=== PATIENT | female | born 1935 | race Caucasian/White ===

== ENCOUNTER 2017-07-10 14:18 | Inpatient (IN) | payer MEDICARE, MEDICAID, OTHER ==
[~2017-07-10] VITALS: Ht 170.2 cm; Wt 72.8 kg
[2017-07-10 14:38] VITALS: BP 203/90; PULSE 96; RESP 20; TEMP 97.8; O2SAT 96
[2017-07-10] MEDS ORDERED: DICL1KIT5 TOPICAL (15:46)
[2017-07-10] MEDS ORDERED: MEMA28CA PO (15:46)
[2017-07-10] MEDS ORDERED: ATOR10TA15 PO (15:46)
[2017-07-10] MEDS ORDERED: METR-1 PO (15:46)
[2017-07-10] MEDS ORDERED: LISI-519 PO (15:46)
[2017-07-10] MEDS ORDERED: DONE5TAB7 PO (15:46)
[2017-07-10] MEDS ORDERED: SERO50TA PO (15:46)
[2017-07-10] MEDS ORDERED: SERO25TA PO (15:46)
[2017-07-10] MEDS ORDERED: CEFU1TAB18 PO (15:46)
[2017-07-10 15:51] LABS: BACTERIA, URINE RARE /hpf; BILIRUBIN, URINE NEG (NEG); BLOOD, URINE NEG (NEG); GLUCOSE,URINE NEG (NEG); HYALINE CAST, URINE 10 /lpf (RARE); KETONE, URINE TRACE mg/dL (NEG); MUCUS URINE MOD /lpf (OCC); NITRITE,URINE NEG (NEG); URINE COLOR YELLOW (YELLW/STRAW); URINE LEUKOCYTE ESTERASE SMALL (NEG)
[2017-07-10 15:51] LABS: AUTOMATED NEUTROPHIL # 3.6 TH/MM3 (1.8-7.7); BASOPHIL % 0.6 % (0.0-2.0); EOSINOPHIL # 0.1 TH/MM3 (0-0.4); EOSINOPHIL % 1.9 % (0.0-4.0); HEMATOCRIT 39.7 % (35.0-46.0); HEMOGLOBIN 13.3 GM/DL (11.6-15.3); LYMPH % 23.2 % (9.0-44.0); LYMPHOCYTE # 1.3 TH/MM3 (1.0-4.8); MEAN CELL VOLUME 92.2 FL (80.0-100.0); MEAN CORPUSCULAR HEMOGLOBIN 30.8 PG (27.0-34.0); MEAN CORPUSCULAR HGB CONC 33.4 % (32.0-36.0); MONO % 11.9 % (0.0-8.0); MONOCYTE # 0.7 TH/MM3 (0-0.9); NEUT % 62.4 % (16.0-70.0); PLATELET COUNT 236 TH/MM3 (150-450); RED BLOOD COUNT 4.31 MIL/MM3 (4.00-5.30); RED CELL DISTRIBUTION WIDTH 13.8 % (11.6-17.2); WHITE BLOOD COUNT 5.8 TH/MM3 (4.0-11.0)
[2017-07-10] MEDS ORDERED: FAMO20TA2 PO (15:52)
[2017-07-10] MEDS ORDERED: OCUVTAB4 PO (15:52)
[2017-07-10] MEDS ORDERED: ALPR.5 PO (15:52)
[2017-07-10] MEDS ORDERED: TIMO0.5S30 LEFT EYE (15:52)
[2017-07-10] MEDS ORDERED: BROM0.072 (15:52)
[2017-07-10] MEDS ORDERED: ALEN1TAB48 PO (15:52)
--- NOTE | 2017-07-10 15:58 | RADRPT ---
EXAM DATE/TIME: 07/10/2017 15:44 [facility] COMPARISON: No previous studies available for comparison. INDICATIONS : Altered mental status. Bizzare behavior. RADIATION DOSE: 27.09 CTDIvol (mGy) MEDICAL HISTORY : Dementia. Hypertension. SURGICAL HISTORY : Hysterectomy. ENCOUNTER: Initial ACUITY: 1 day PAIN SCALE: 0/10 LOCATION: cranial TECHNIQUE: Multiple contiguous axial images were obtained of the head. Using automated exposure control and adj ustment of the mA and/or kV according to patient size, radiation dose was kept as low as reasonably a chievable to obtain optimal diagnostic quality images. DICOM format image data is available electro nically for review and comparison. FINDINGS: There is no evidence for intracranial hemorrhage, mass effect, mass lesions, or edema. The visualize d bony structures appear intact. Slight degree of brain atrophy is seen. Slight periventricular whit e matter changes are seen nonspecific mostly consistent with chronic small vessel ischemic changes. There are no signs of acute infarction for technique. CONCLUSION: Slight atrophic and small vessel ischemic changes without any evidence for acute hemorrhage or mass effect. Cash Vergara MD on July 10, 2017 at 15:55 Board Certified Radiologist. This report was verified electronically.
--- NOTE | 2017-07-10 16:03 | RADRPT ---
EXAM DATE/TIME: 07/10/2017 15:28 [facility] COMPARISON: No previous studies available for comparison. INDICATIONS : Syncopal episode, High Blood Pressure MEDICAL HISTORY : Hypertension. Dementia SURGICAL HISTORY : Hysterectomy. ENCOUNTER: Initial ACUITY: 1 day PAIN SCORE: 0/10 LOCATION: Bilateral chest FINDINGS: The lungs are clear without infiltrate, nodule, or mass. There is no appreciable pleural effusion fo r technique. Heart and mediastinum are unremarkable. CONCLUSION: No acute cardiopulmonary disease. Cash Vergara MD on July 10, 2017 at 16:01 Board Certified Radiologist. This report was verified electronically.
[2017-07-10 16:05] LABS: ALBUMIN 3.5 GM/DL (3.4-5.0); ALT (GPT) 18 U/L (10-53); AST (GOT) 26 U/L (15-37); BICARBONATE 23.7 MEQ/L (21.0-32.0); BLOOD UREA NITROGEN 12 MG/DL (7-18); CALCIUM 8.9 MG/DL (8.5-10.1); CHLORIDE 111 MEQ/L (98-107); CREATININE 0.96 MG/DL (0.50-1.00); GLOMERULAR FILTRATION RATE 56 ML/MIN (>89); GLUCOSE,RANDOM 91 MG/DL (74-106); SODIUM (NA) 142 MEQ/L (136-145)
[2017-07-10 16:08] LABS: ALKALINE PHOSPHATASE 102 U/L (45-117); TOTAL BILIRUBIN ADULT 0.4 MG/DL (0.2-1.0); TOTAL PROTEIN 7.2 GM/DL (6.4-8.2)
[2017-07-10 16:12] LABS: ACETAMINOPHEN LESS THAN 2.0 MCG/ML (10.0-30.0)
--- NOTE | 2017-07-10 16:12 | PD ---
HPI Chief Complaint: Psychiatric Symptoms Time Seen by Provider: 14:52 Travel History International Travel<30 days: No Contact w/Intl Traveler<30days: No Traveled to known affect area: No History of Present Illness HPI 81-year-old female arrives to the ER as a romero act. She arrives from [facility] from an RESIDENTIAL. She is found in another patient's bed and upon awakening was combative. 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 She denies any intent to harm anybody or herself. Location generalized. Timing constant. Severity moderate. PFSH Past Medical History Dementia: Yes Glaucoma: Yes Hypertension: Yes Medical other: Yes (OSTEOPOROSIS) Past Surgical History Hysterectomy: Yes Social History Alcohol Use: No Tobacco Use: No Substance Use: No Allergies-Medications (Allergen,Severity, Reaction): Coded Allergies: Penicillins (Verified Adverse Reaction, Severe, 07/10/17) levofloxacin (Verified Adverse Reaction, Severe, 07/10/17) Reported Meds & Prescriptions Reported Meds & Active Scripts Active Reported Xanax (Alprazolam) 0.5 Mg Tab 0.5 Mg PO HS PRN Preservision Areds (Multiple Vitamins W/ Minerals) 1 Tab 1 Tab PO DAILY Famotidine 20 Mg Tab 20 Mg PO BID Timolol Opth Drops 0.5 % Soln 1 Drop LEFT EYE BID Prolensa Opth Drops (Bromfenac Opth Drops) 0.07% Soln 1 Drop DAILY Alendronate (Alendronate Sodium) 70 Mg Tab 70 Mg PO Q7D Seroquel (Quetiapine Fumarate) 50 Mg Tab 50 Mg PO BID Namenda Xr (Memantine) 28 Mg Caper 28 Mg PO DAILY Lisinopril 5 Mg Tab 5 Mg PO DAILY Donepezil 5 Mg Tab 5 Mg PO HS Diclo Gel Topical (Diclofenac Sodium) 1% Gel 1 Applic TOPICAL DAILY Atorvastatin (Atorvastatin Calcium) 10 Mg Tab 10 Mg PO HS Review of Systems ROS Limitations: Clinical Condition, Poor Historian Physical Exam Narrative GENERAL: 81-year-old female well-nourished well-developed no acute distress resting supine comfortably on bed SKIN: Focused skin assessment warm/dry. HEAD: Atraumatic. Normocephalic. EYES: Pupils equal and round. No scleral icterus. No injection or drainage. ENT: No nasal bleeding or discharge. Mucous membranes pink and moist. NECK: Trachea midline. No JVD. CARDIOVASCULAR: Regular rate and rhythm. No murmur appreciated. RESPIRATORY: No accessory muscle use. Clear to auscultation. Breath sounds equal bilaterally. GASTROINTESTINAL: Abdomen soft, non-tender, nondistended. Hepatic and splenic margins not palpable. MUSCULOSKELETAL: No obvious deformities. No clubbing. No cyanosis. No edema. NEUROLOGICAL: No focal cranial nerve deficit. Patient moving all extremities normally. Patient believes it's 2021. She knows her name and that she is in [facility]. 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 PSYCHIATRIC: Patient is here as a Romero act. To me she denies intent to harm others or herself Data Data Last Documented VS Vital Signs Date Time Temp Pulse Resp B/P (MAP) Pulse Ox O2 Delivery O2 Flow Rate FiO2 07/10/17 14:38 97.8 96 20 203/90 (127) 96 Vital signs reviewed Orders Orders Complete Blood Count With Diff (07/10/17 14:52) Comprehensive Metabolic Panel (07/10/17 14:52) Urinalysis - C+S If Indicated (07/10/17 14:52) Chest, Single Ap (07/10/17 14:52) Ct Brain W/O Iv Contrast(Rout) (07/10/17 14:52) Ecg Monitoring (07/10/17 14:52) Iv Access Insert/Monitor (07/10/17 14:52) Cath For Specimen (07/10/17 14:52) Oximetry (07/10/17 14:52) Drug Screen, Random Urine (07/10/17 14:52) Alcohol (Ethanol) (07/10/17 14:52) Salicylates (Aspirin) (07/10/17 14:52) Tylenol (Acetaminophen) (07/10/17 14:52) Urine Culture (07/10/17 15:30) Labs Laboratory Tests Test 07/10/17 15:20 07/10/17 15:30 White Blood Count 5.8 TH/MM3 Red Blood Count 4.31 MIL/MM3 Hemoglobin 13.3 GM/DL Hematocrit 39.7 % Mean Corpuscular Volume 92.2 FL Mean Corpuscular Hemoglobin 30.8 PG Mean Corpuscular Hemoglobin Concent 33.4 % Red Cell Distribution Width 13.8 % Platelet Count 236 TH/MM3 Mean Platelet Volume 10.0 FL Neutrophils (%) (Auto) 62.4 % Lymphocytes (%) (Auto) 23.2 % Monocytes (%) (Auto) 11.9 % Eosinophils (%) (Auto) 1.9 % Basophils (%) (Auto) 0.6 % Neutrophils # (Auto) 3.6 TH/MM3 Lymphocytes # (Auto) 1.3 TH/MM3 Monocytes # (Auto) 0.7 TH/MM3 Eosinophils # (Auto) 0.1 TH/MM3 Basophils # (Auto) 0.0 TH/MM3 CBC Comment DIFF FINAL Differential Comment Blood Urea Nitrogen 12 MG/DL Creatinine 0.96 MG/DL Random Glucose 91 MG/DL Albumin 3.5 GM/DL Calcium Level 8.9 MG/DL Aspartate Amino Transf (AST/SGOT) 26 U/L Alanine Aminotransferase (ALT/SGPT) 18 U/L Sodium Level 142 MEQ/L Potassium Level 4.1 MEQ/L Chloride Level 111 MEQ/L Carbon Dioxide Level 23.7 MEQ/L Anion Gap 7 MEQ/L Estimat Glomerular Filtration Rate 56 ML/MIN Salicylates Level LESS THAN 1.7 MG/DL Ethyl Alcohol Level LESS THAN 3 MG/DL Urine Color YELLOW Urine Turbidity HAZY Urine pH 6.0 Urine Specific [place] 1.026 Urine Protein 30 mg/dL Urine Glucose (UA) NEG mg/dL Urine Ketones TRACE mg/dL Urine Occult Blood NEG Urine Nitrite NEG Urine Bilirubin NEG Urine Urobilinogen 2.0 MG/DL Urine Leukocyte Esterase SMALL Urine RBC 3 /hpf Urine WBC 7 /hpf Urine Bacteria RARE /hpf Urine Hyaline Casts 10 /lpf Urine Mucus MOD /lpf Microscopic Urinalysis Comment CATH-CULTURE IND Urine Opiates Screen NEG Urine Barbiturates Screen NEG Urine Amphetamines Screen NEG Urine Benzodiazepines Screen POS Urine Cocaine Screen NEG Urine Cannabinoids Screen NEG MDM Medical Decision Making Medical Screen Exam Complete: Yes Emergency Medical Condition: Yes Medical Record Reviewed: Yes Differential Diagnosis UTI, psychosis, dementia, metabolic disarray Narrative Course CBC & BMP Diagram 07/10/17 15:20 Total Protein 7.2, Albumin 3.5, Calcium Level 8.9, Alkaline Phosphatase 102, Aspartate Amino Transf (AST/SGOT) 26, Alanine Aminotransferase (ALT/SGPT) 18, Total Bilirubin 0.4 Benzodiazepines positive in the urine Salicylates Tylenol drug screen otherwise negative Urinalysis shows a UTI Last Impressions Head CT 12/31/17 8557 Signed Impressions: Service Date/Time: Monday, July 10, 2017 15:44 - CONCLUSION: Slight atrophic and small vessel ischemic changes without any evidence for acute hemorrhage or mass effect. Cash Vergara MD Chest x-ray shows no acute disease Patient with a history of dementia who has a UTI. Combative behavior may be related to UTI. Abx provided. Diagnosis Primary Impression: UTI (urinary tract infection) Qualified Codes: N30.00 - Acute cystitis without hematuria Additional Impression: Combative behavior Admitting Information Admitting Physician Requests: Observation Jonathan Hui MD Jul 10, 2017 16:12
[2017-07-10] MEDS ORDERED: BACT800T5 PO (16:55)
[2017-07-10] MEDS ORDERED: SULFAMETHOXAZOLE-TRIMETHOPRIM DS 800-160 MG TAB PO ONE (17:00)
[2017-07-10] MEDS ORDERED: HALOPERIDOL LACTATE 5 MG/ML AMP IM ONE ×2 (17:45→19:45)
[2017-07-10 17:46] VITALS: BP 214/91; PULSE 100; RESP 20; O2SAT 95
[2017-07-10 18:34] VITALS: BP 197/86; PULSE 91; RESP 18; TEMP 98.6; O2SAT 99
--- NOTE | 2017-07-10 19:46 | PD ---
Physical Exam Date Seen by Provider: Jul 10, 2017 Time Seen by Provider: 19:45 Data Data Last Documented VS Vital Signs Date Time Temp Pulse Resp B/P (MAP) Pulse Ox O2 Delivery O2 Flow Rate FiO2 07/10/17 18:34 98.6 91 18 197/86 (123) 99 Room Air Orders Orders Complete Blood Count With Diff (07/10/17 14:52) Comprehensive Metabolic Panel (07/10/17 14:52) Urinalysis - C+S If Indicated (07/10/17 14:52) Chest, Single Ap (07/10/17 14:52) Ct Brain W/O Iv Contrast(Rout) (07/10/17 14:52) Ecg Monitoring (07/10/17 14:52) Iv Access Insert/Monitor (07/10/17 14:52) Cath For Specimen (07/10/17 14:52) Oximetry (07/10/17 14:52) Drug Screen, Random Urine (07/10/17 14:52) Alcohol (Ethanol) (07/10/17 14:52) Salicylates (Aspirin) (07/10/17 14:52) Tylenol (Acetaminophen) (07/10/17 14:52) Urine Culture (07/10/17 15:30) Psych Screen (07/10/17 16:14) Sulfamet-Trimeth Ds 800-160 Mg (Bactrim (07/10/17 17:00) Haloperidol Inj (Haldol Inj) (07/10/17 17:45) Diet Regular Basic (07/10/17 Dinner) Haloperidol Inj (Haldol Inj) (07/10/17 19:45) Restraints Non-Violent JERMAINE.Q3H (07/10/17 19:42) Labs Laboratory Tests Test 07/10/17 15:20 07/10/17 15:30 White Blood Count 5.8 TH/MM3 Red Blood Count 4.31 MIL/MM3 Hemoglobin 13.3 GM/DL Hematocrit 39.7 % Mean Corpuscular Volume 92.2 FL Mean Corpuscular Hemoglobin 30.8 PG Mean Corpuscular Hemoglobin Concent 33.4 % Red Cell Distribution Width 13.8 % Platelet Count 236 TH/MM3 Mean Platelet Volume 10.0 FL Neutrophils (%) (Auto) 62.4 % Lymphocytes (%) (Auto) 23.2 % Monocytes (%) (Auto) 11.9 % Eosinophils (%) (Auto) 1.9 % Basophils (%) (Auto) 0.6 % Neutrophils # (Auto) 3.6 TH/MM3 Lymphocytes # (Auto) 1.3 TH/MM3 Monocytes # (Auto) 0.7 TH/MM3 Eosinophils # (Auto) 0.1 TH/MM3 Basophils # (Auto) 0.0 TH/MM3 CBC Comment DIFF FINAL Differential Comment Blood Urea Nitrogen 12 MG/DL Creatinine 0.96 MG/DL Random Glucose 91 MG/DL Total Protein 7.2 GM/DL Albumin 3.5 GM/DL Calcium Level 8.9 MG/DL Alkaline Phosphatase 102 U/L Aspartate Amino Transf (AST/SGOT) 26 U/L Alanine Aminotransferase (ALT/SGPT) 18 U/L Total Bilirubin 0.4 MG/DL Sodium Level 142 MEQ/L Potassium Level 4.1 MEQ/L Chloride Level 111 MEQ/L Carbon Dioxide Level 23.7 MEQ/L Anion Gap 7 MEQ/L Estimat Glomerular Filtration Rate 56 ML/MIN Salicylates Level LESS THAN 1.7 MG/DL Acetaminophen Level LESS THAN 2.0 MCG/ML Ethyl Alcohol Level LESS THAN 3 MG/DL Urine Color YELLOW Urine Turbidity HAZY Urine pH 6.0 Urine Specific [place] 1.026 Urine Protein 30 mg/dL Urine Glucose (UA) NEG mg/dL Urine Ketones TRACE mg/dL Urine Occult Blood NEG Urine Nitrite NEG Urine Bilirubin NEG Urine Urobilinogen 2.0 MG/DL Urine Leukocyte Esterase SMALL Urine RBC 3 /hpf Urine WBC 7 /hpf Urine Bacteria RARE /hpf Urine Hyaline Casts 10 /lpf Urine Mucus MOD /lpf Microscopic Urinalysis Comment CATH-CULTURE IND Urine Opiates Screen NEG Urine Barbiturates Screen NEG Urine Amphetamines Screen NEG Urine Benzodiazepines Screen POS Urine Cocaine Screen NEG Urine Cannabinoids Screen NEG MDM Medical Record Reviewed: Yes Supervised Visit with SHIVA: Yes Differential Diagnosis . Narrative Course I was notified by the nursing staff that the patient has become increasingly agitated and has been disrupted to her care. She was placed into locks occlusion due to her destructive behavior and inability to follow direction. Consultation with Dr. Young has recommended 2.5 mg of additional Haldol. Patient had gotten 2.5 mg of Haldol 2 hours prior. Diagnosis Primary Impression: UTI (urinary tract infection) Qualified Codes: N30.00 - Acute cystitis without hematuria Additional Impression: Combative behavior Scripts Sulfamethoxazole-Trimethoprim (Bactrim DS) 800-160 Mg Tab 1 TAB PO BID for Infection, #14 TAB 0 Refills Prov: Jonathan Hui MD 07/10/17 Condition: Stable Chilango Holley Jul 10, 2017 19:46
[2017-07-10 23:07] VITALS: BP 144/73; PULSE 103; RESP 18; O2SAT 96
[2017-07-11 03:41] VITALS: RESP 16
[2017-07-11 09:19] VITALS: BP 200/76; PULSE 104; RESP 18; TEMP 97.3; O2SAT 98
[2017-07-11] MEDS ORDERED: SULFAMETHOXAZOLE-TRIMETHOPRIM DS 800-160 MG TAB PO ONE (09:30)
[2017-07-11] MEDS ORDERED: LISINOPRIL 5 MG TAB PO ONE (09:30)
[2017-07-11] MEDS ORDERED: ALPRAZolam 0.5 MG TAB PO ONE (09:30)
[2017-07-11] MEDS ORDERED: QUEtiapine FUMARATE 100 MG TAB PO ONE (09:30)
[2017-07-11] MEDS ORDERED: diphenhydrAMINE HCL 50 MG CAP PO PRN (12:15)
[2017-07-11] MEDS ORDERED: ALUMINUM/MAGNESIUM/SIMETH 30 ML CUP PO PRN (12:15)
[2017-07-11] MEDS ORDERED: MAGNESIUM HYDROXIDE SUSP 30 ML CUP PO PRN (12:15)
[2017-07-11] MEDS ORDERED: diphenhydrAMINE HCL 50 MG/ML VIAL IM PRN (12:15)
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
[2017-07-11] MEDS: LORazepam 0.5 MG TAB PO PRN (16:28)
[2017-07-11 17:07] VITALS: BP 172/84; RESP 16
[2017-07-11 17:28] VITALS: BP 181/79; PULSE 108; RESP 16; TEMP 98.5; O2SAT 98
[2017-07-11 20:52] VITALS: BP 196/92; PULSE 89; RESP 20; O2SAT 97
[2017-07-11] MEDS: ACETAMINOPHEN 325 MG TAB PO PRN (21:21)
[2017-07-11] MEDS: cloNIDine HCL 0.1 MG TAB PO PRN (21:28)
[2017-07-11] MEDS: SULFAMETHOXAZOLE-TRIMETHOPRIM DS 800-160 MG TAB PO SCH (22:34)
[2017-07-11] MEDS: ATORVASTATIN 10 MG TAB PO SCH (22:34)
[2017-07-11] MEDS: FAMOTIDINE 20 MG TAB PO SCH (22:34)
[2017-07-11] MEDS: TIMOLOL MALEATE 0.5% OPHT SOLN 5 ML BTL LEFT EYE SCH (22:34)
[2017-07-12] MEDS: ACETAMINOPHEN 325 MG TAB PO PRN (02:23)
[2017-07-12 06:13] VITALS: BP 162/85; PULSE 73; RESP 16; TEMP 97.6; O2SAT 95
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
[2017-07-12 08:20] VITALS: BP 139/67; PULSE 76; RESP 18; TEMP 97.4; O2SAT 98
[2017-07-12] MEDS ORDERED: PROLENSA 0.07% LEFT EYE SCH (09:00)
--- NOTE | 2017-07-12 10:39 | HHI.PYPN ---
Subjective Remarks Patient seen for follow-up, chart review. Patient is a 1-year-old woman, domiciled an assisted living facility, with a past psychiatric history of dementia who was recently admitted to the inpatient psychiatry unit under [facility] act after having been found in the process bed and was combative refused. Patient was noted to have had aggressive behavior in the ER she required ETO 2 along with being put in seclusion at one point. Patient also endorsed to admitting psychiatrist that she had suicidal ideations with plan to [facility] [employer] [employer] as well as noted to be alert and oriented only to person. Patient was found lying in hospital bed, cooperative. Patient alert and oriented only to person and partially to place processes hospital but not the city close (. 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 Patient at times noted to be confused during interview, endorse feeling depressed stating that "I don't want to be here". Patient admitted to having suicidal ideations and states that this time she felt when she was in the ER but didn't states that she has been happy at the assisted living facility. Patient states "everyone is depressed there" as well as her reporting feeling depressed but stated that she expects to get better. Patient denies any SI at this time denies any perceptual disturbances or delusions at this time. Review of Systems Except as stated in HPI: all other systems reviewed are Neg Mental Status Examination Appearance: Disheveled Consciousness: Alert Orientation: Person Motor Activity: Abnormal gait Speech: Incoherent Language: Perseveration Fund of Knowledge: Inadequate Attention and Concentration: Inadequate Memory: Impaired Mood: Sad, Other ("depressed") Affect: Sad Thought Process & Associations: Other (concrete) Thought Content: Bizarre thinking, Delusional Hallucination Type: None Delusion Type: Paranoid Suicidal Ideation: Yes (denies today) Suicidal Plan: No Suicidal Intention: No Homicidal Ideation: No Homicidal Plan: No Homicidal Intention: No Insight: Poor Judgment: Poor Results Labs Labs reviewed Date/Time Source Procedure Growth Status 07/10/17 15:30 Urine Catheterized Urine Urine Culture - Final 50-100,000 CFU/ML MIXED GRAM POSITIVE... Complete Vitals/IOs Vital Signs Date Time Temp Pulse Resp B/P (MAP) Pulse Ox O2 Delivery O2 Flow Rate FiO2 1/2/18 08:20 97.4 76 18 139/67 (91) 98 07/10/17 18:34 Room Air Intake and Output 07/12/17 07/12/17 07/13/17 08:00 16:00 00:00 Intake Total 240 ml Balance 240 ml Assessment & Plan Problem List: (1) Alzheimer's dementia with behavioral disturbance ICD Codes: G30.9 - Alzheimer's disease, unspecified; F02.81 - Dementia in other diseases classified elsewhere with behavioral disturbance (2) Dementia in other diseases classified elsewhere with behavioral disturbance ICD Codes: F02.81 - Dementia in other diseases classified elsewhere with behavioral disturbance Assessment & Plan Patient this time continues to be noted to, alert and oriented only to person and partially to place. Patient endorsing feeling depressed and having previously endorses ideation which may be circumstantial but denies any suicidal ideations today. Patient does not recall events prior to her hospitalization. We'll start quetiapine 12.5 mg by mouth twice a day and citalopram 10 mg by mouth daily and as tolerated well will increase to 20 mg by mouth daily starting tomorrow for depression. Continue recommendations as per primary medical team. Discharge planning in progress Justification for Cont. Inpt. At risk for decompensation at lower level care Discharge Planning Patient to return to an assisted living facility when medically and psychiatrically stable Liam Powers MD Jul 12, 2017 10:39
--- NOTE | 2017-07-12 10:44 | RADRPT ---
EXAM DATE/TIME: 07/12/2017 10:36 [facility] COMPARISON: CT BRAIN W/O CONTRAST, July 10, 2017, 15:44. INDICATIONS : Trauma, fall. Contusion. RADIATION DOSE: 47.15 CTDIvol (mGy) MEDICAL HISTORY : Dementia. Hypertension. SURGICAL HISTORY : None. ENCOUNTER: Initial ACUITY: 1 day PAIN SCALE: 0/10 LOCATION: cranial TECHNIQUE: Multiple contiguous axial images were obtained of the head. Using automated exposure control and adj ustment of the mA and/or kV according to patient size, radiation dose was kept as low as reasonably a chievable to obtain optimal diagnostic quality images. DICOM format image data is available electro nically for review and comparison. FINDINGS: There is no evidence for intracranial hemorrhage, mass effect, mass lesions, or edema. The visualize d bony structures appear intact. Slight degree of brain atrophy is seen. Slight periventricular whit e matter changes are seen nonspecific mostly consistent with chronic small vessel ischemic changes. There are no signs of acute infarction for technique. CONCLUSION: Slight atrophic and small vessel ischemic changes without any evidence for acute hemorrhage or mass effect. Cash Vergara MD on July 12, 2017 at 10:41 Board Certified Radiologist. This report was verified electronically.
[2017-07-12] MEDS ORDERED: PILL SPLITTER OTHER PRN (10:45)
[2017-07-12] MEDS: LISINOPRIL 5 MG TAB PO SCH (11:11)
[2017-07-12] MEDS: SULFAMETHOXAZOLE-TRIMETHOPRIM DS 800-160 MG TAB PO SCH ×3 (11:11→20:49)
[2017-07-12] MEDS: TIMOLOL MALEATE 0.5% OPHT SOLN 5 ML BTL LEFT EYE SCH ×2 (11:12→20:41)
[2017-07-12] MEDS: QUEtiapine FUMARATE 25 MG TAB PO SCH ×2 (11:12→20:42)
[2017-07-12] MEDS: FAMOTIDINE 20 MG TAB PO SCH ×2 (11:12→20:42)
--- NOTE | 2017-07-12 11:30 | RADRPT ---
EXAM DATE/TIME: 07/12/2017 10:40 [facility] COMPARISON: No previous studies available for comparison. INDICATIONS : Trauma, fall. ORAL CONTRAST: No oral contrast ingested. RADIATION DOSE: 21.40 CTDIvol (mGy) MEDICAL HISTORY : Dementia. Hypertension. SURGICAL HISTORY : Hysterectomy. ENCOUNTER: Initial ACUITY: 1 day PAIN SCALE: 5/10 LOCATION: Bilateral pelvis TECHNIQUE: Volumetric scanning of the pelvis was performed. Using automated exposure control and adjustment of the mA and/or kV according to patient size, radiation dose was kept as low as reasonably achievable t o obtain optimal diagnostic quality images. DICOM format image data is available electronically for review and comparison. FINDINGS: There is no evidence for free fluid, mass, abscess formation, or any significant pathological adenopa thy. There are no signs of diverticulitis. Scattered diverticuli are present in the visualized colo n. There are degenerative changes and possible bulging discs in the lower lumbosacral spine not adeq uately characterized. CONCLUSION: No definite fracture is seen for techniqueGina Vergara MD on July 12, 2017 at 11:25 Board Certified Radiologist. This report was verified electronically.
[2017-07-12] MEDS ORDERED: CITALOPRAM HYDROBROMIDE 20 MG TAB PO ONE (11:45)
[2017-07-12 11:53] LABS: AUTOMATED NEUTROPHIL # 5.6 TH/MM3 (1.8-7.7); BASOPHIL % 0.4 % (0.0-2.0); EOSINOPHIL # 0.1 TH/MM3 (0-0.4); EOSINOPHIL % 1.9 % (0.0-4.0); HEMATOCRIT 40.5 % (35.0-46.0); HEMOGLOBIN 13.2 GM/DL (11.6-15.3); LYMPH % 13.3 % (9.0-44.0); MEAN CELL VOLUME 91.5 FL (80.0-100.0); MEAN CORPUSCULAR HEMOGLOBIN 29.8 PG (27.0-34.0); MEAN CORPUSCULAR HGB CONC 32.6 % (32.0-36.0); MEAN PLATELET VOLUME 9.9 FL (7.0-11.0); MONO % 7.9 % (0.0-8.0); MONOCYTE # 0.6 TH/MM3 (0-0.9); NEUT % 76.5 % (16.0-70.0); PLATELET COUNT 238 TH/MM3 (150-450); RED BLOOD COUNT 4.43 MIL/MM3 (4.00-5.30); RED CELL DISTRIBUTION WIDTH 14.4 % (11.6-17.2); WHITE BLOOD COUNT 7.3 TH/MM3 (4.0-11.0)
[2017-07-12 12:00] VITALS: BP 128/58; PULSE 99; RESP 18; TEMP 97.4; O2SAT 96
[2017-07-12 12:24] LABS: ALBUMIN 3.9 GM/DL (3.4-5.0); ALT (GPT) 19 U/L (10-53); AST (GOT) 32 U/L (15-37); BICARBONATE 25.1 MEQ/L (21.0-32.0); BLOOD UREA NITROGEN 13 MG/DL (7-18); CALCIUM 9.4 MG/DL (8.5-10.1); CHLORIDE 106 MEQ/L (98-107); CHOLESTEROL 210 MG/DL (120-200); CREATININE 1.18 MG/DL (0.50-1.00); GLOMERULAR FILTRATION RATE 44 ML/MIN (>89); GLUCOSE,RANDOM 97 MG/DL (74-106); SODIUM (NA) 140 MEQ/L (136-145); TRIGLYCERIDES 139 MG/DL (42-150)
[2017-07-12 12:50] LABS: ALKALINE PHOSPHATASE 103 U/L (45-117); CHOLESTEROL/ HDL RATIO 3.26 RATIO; HDL CHOLESTEROL 64.4 MG/DL (40.0-60.0); LDL CHOLESTEROL 118 MG/DL (0-99); TOTAL BILIRUBIN ADULT 0.6 MG/DL (0.2-1.0); TOTAL PROTEIN 7.5 GM/DL (6.4-8.2)
[2017-07-12 16:00] VITALS: BP 111/59; PULSE 94; RESP 20; TEMP 97.6; O2SAT 93
[2017-07-12 16:28] LABS: HEMOGLOBIN A1C 5.7 % (4.3-6.0)
--- NOTE | 2017-07-12 16:48 | EKG ---
Date Performed: 07/12/2017 Time Performed: 11:09:25 PTAGE: 81 years EKG: Sinus rhythm NONSPECIFIC ST & T-WAVE ABNORMALITY BORDERLINE ECG NO PREVIOUS TRACING DOCTOR: Naya Li Interpretating Date/Time 07/12/2017 16:47:33
[2017-07-12 18:00] VITALS: BP 111/59; PULSE 94; RESP 18; TEMP 97.6; O2SAT 92
[2017-07-12 20:19] VITALS: BP 167/74; PULSE 97; RESP 17; TEMP 97.7; O2SAT 98
[2017-07-12] MEDS: ATORVASTATIN 10 MG TAB PO SCH (20:42)
[2017-07-12] MEDS: LORazepam 2 MG/ML VIAL IM PRN (23:29)
[2017-07-13] VITALS: BP 174/81; PULSE 86; RESP 16; TEMP 97.9; O2SAT 93
[2017-07-13 04:04] VITALS: BP 204/98; PULSE 89; RESP 15; TEMP 97.7; O2SAT 97
[2017-07-13] MEDS: cloNIDine HCL 0.1 MG TAB PO PRN (04:05)
[2017-07-13 06:04] VITALS: BP 113/52; PULSE 89; RESP 15; TEMP 97.7
[2017-07-13] MEDS: TIMOLOL MALEATE 0.5% OPHT SOLN 5 ML BTL LEFT EYE SCH ×2 (08:08→20:28)
--- NOTE | 2017-07-13 08:11 | HHI.PR ---
Subjective Remarks Follow-up on 81-year-old female with history of dementia, HTN, HLD and currently with UTI. Seems drowsy to me this AM, talking and able to follow commands. Nurse repots patient did not sleep last night, had refused some of her medications and received IM Ativan. She is able to tell me who the president is and her full name. Asked if she knew where she was at and patient tells me "this is suppose to turn into my house". She denies any dysuria, fever , chills, nausea, vomiting or pain. Objective Vitals Vital Signs Date Time Temp Pulse Resp B/P (MAP) Pulse Ox O2 Delivery O2 Flow Rate FiO2 07/13/17 06:04 97.7 89 15 113/52 (72) 07/13/17 04:04 97.7 89 15 204/98 (133) 97 07/13/17 00:00 97.9 86 16 174/81 (112) 93 07/12/17 20:19 97.7 97 17 167/74 (105) 98 07/12/17 18:00 97.6 94 18 111/59 (76) 92 07/12/17 16:00 97.6 94 20 111/59 (76) 93 07/12/17 12:00 97.4 99 18 128/58 (81) 96 07/12/17 08:20 97.4 76 18 139/67 (91) 98 I/O 07/12/17 07/12/17 07/12/17 07/13/17 07/13/17 07/13/17 07:00 15:00 23:00 07:00 15:00 23:00 Intake Total 120 ml 1100 ml 120 ml 60 ml Balance 120 ml 1100 ml 120 ml 60 ml Intake Oral 120 ml 1100 ml 120 ml 60 ml # Voids 2 5 0 Result Diagram: 07/12/17 1105 07/12/17 1105 Imaging Last Impressions Pelvis CT 07/12/17 0000 Signed Impressions: Service Date/Time: Wednesday, July 12, 2017 10:40 - CONCLUSION: No definite fracture is seen for technique. K. Ernesto Vergara MD Head CT 07/12/17 0000 Signed Impressions: Service Date/Time: Wednesday, July 12, 2017 10:36 - CONCLUSION: Slight atrophic and small vessel ischemic changes without any evidence for acute hemorrhage or mass effect. Cash Vergara MD Chest X-Ray 07/10/17 1452 Signed Impressions: Service Date/Time: Monday, July 10, 2017 15:28 - CONCLUSION: No acute cardiopulmonary disease. Cash Vergara MD Objective Remarks GENERAL: This is a well-nourished, well-developed patient, in no apparent distress. SKIN: No rashes, ecchymoses or lesions. Cool and dry. HEAD: Atraumatic. Normocephalic. No temporal or scalp tenderness. EYES: Pupils equal round and reactive. Extraocular motions intact. No injection or drainage. ENT: Nose without bleeding, purulent drainage or septal hematoma. Airway patent. NECK: Trachea midline. CARDIOVASCULAR: Regular rate and rhythm without murmurs, gallops, or rubs. RESPIRATORY: Clear to auscultation. Anterior breath sounds are clear to auscultation. GASTROINTESTINAL: Abdomen soft, non-tender, nondistended. No guarding. MUSCULOSKELETAL: Extremities without clubbing, cyanosis, or edema. No joint tenderness, effusion, or edema noted. NEUROLOGICAL: Awake and alert but appears sleepy today. Oriented to self. Bilateral upper and lower strength +5. No facial droop, speech is clear. A/P Assessment and Plan 81-year-old female patient with history of dementia and behavioral disturbance admitted to psychiatric unit for suicidal ideation. Medicine has been consultation for management of chronic medical problems. Dementia and behavioral disturbance - per psych - Patient did not get much sleep last night required IM Ativan, sleepy today. Fall unwitnessed - Head CT and Abd/pelvis CT negative for fracture or bleed. - Fall precautions - OT and PT have been consulted. HTN, fluctuating - Patient reportedly refusing some meds last night. BP early this AM 204/98, nurse reports patient was administered Clonidine (this was not scanned in computer apparently). BP around 6am 113/52 - continue lisinopril - clonodine prn HLD - continue statin UTI - Culture and sensitivity with mixed gram-positive organisms probably contaminated - On Bactrim end date placed for 07/16, denies urinary symptoms, afebrile DVT prop - Early ambulation Patient was discussed with nurse. Angle [place] Jul 13, 2017 08:11
[2017-07-13] MEDS: FAMOTIDINE 20 MG TAB PO SCH ×3 (08:14→20:28)
[2017-07-13] MEDS: SULFAMETHOXAZOLE-TRIMETHOPRIM DS 800-160 MG TAB PO SCH ×3 (08:14→20:28)
[2017-07-13] MEDS: LISINOPRIL 5 MG TAB PO SCH ×2 (08:14→09:00)
[2017-07-13] MEDS: CITALOPRAM HYDROBROMIDE 20 MG TAB PO SCH ×2 (08:14→09:00)
[2017-07-13] MEDS: QUEtiapine FUMARATE 25 MG TAB PO SCH ×3 (08:14→20:28)
--- NOTE | 2017-07-13 09:52 | HHI.PYPN ---
Subjective Remarks Patient seen for follow-up, chart reviewed. Discussion she staff reported the patient had poor sleep last evening about 1 hour of sleep, had required Ativan by mouth 1 is also noted to be belligerent, screaming last evening. Patient continue with elevated blood pressure refusing medications last night. Patient was found sitting in hospital chair, cooperative interview today. Patient states that she has been feeling "okay" noted to be alert and oriented only to person and partially to place (hospital) and noted to be confused. 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 Patient denies any suicide ideations stating that she had said this previously because "being a smart as" but denying at this time. Patient was able to take medications this morning and not noted to be agitated. Review of Systems Except as stated in HPI: all other systems reviewed are Neg Mental Status Examination Appearance: Disheveled Consciousness: Alert Orientation: Person Motor Activity: Abnormal gait Speech: Slow, Other (low-volume) Language: Perseveration Fund of Knowledge: Inadequate Attention and Concentration: Inadequate Memory: Impaired Mood: Appropriate, Other ("depressed") Affect: Appropriate Thought Process & Associations: Loose associations, Tangential Thought Content: Bizarre thinking, Delusional Hallucination Type: None Delusion Type: Paranoid Suicidal Ideation: Yes (denies today) Suicidal Plan: No Suicidal Intention: No Homicidal Ideation: No Homicidal Plan: No Homicidal Intention: No Insight: Poor Judgment: Poor Results Labs Labs reviewed Test 07/12/17 11:05 White Blood Count 7.3 TH/MM3 Red Blood Count 4.43 MIL/MM3 Hemoglobin 13.2 GM/DL Hematocrit 40.5 % Mean Corpuscular Volume 91.5 FL Mean Corpuscular Hemoglobin 29.8 PG Mean Corpuscular Hemoglobin Concent 32.6 % Red Cell Distribution Width 14.4 % Platelet Count 238 TH/MM3 Mean Platelet Volume 9.9 FL Neutrophils (%) (Auto) 76.5 % Lymphocytes (%) (Auto) 13.3 % Monocytes (%) (Auto) 7.9 % Eosinophils (%) (Auto) 1.9 % Basophils (%) (Auto) 0.4 % Neutrophils # (Auto) 5.6 TH/MM3 Lymphocytes # (Auto) 1.0 TH/MM3 Monocytes # (Auto) 0.6 TH/MM3 Eosinophils # (Auto) 0.1 TH/MM3 Basophils # (Auto) 0.0 TH/MM3 CBC Comment DIFF FINAL Differential Comment Blood Urea Nitrogen 13 MG/DL Creatinine 1.18 MG/DL Random Glucose 97 MG/DL Total Protein 7.5 GM/DL Albumin 3.9 GM/DL Calcium Level 9.4 MG/DL Alkaline Phosphatase 103 U/L Aspartate Amino Transf (AST/SGOT) 32 U/L Alanine Aminotransferase (ALT/SGPT) 19 U/L Total Bilirubin 0.6 MG/DL Sodium Level 140 MEQ/L Potassium Level 4.0 MEQ/L Chloride Level 106 MEQ/L Carbon Dioxide Level 25.1 MEQ/L Anion Gap 9 MEQ/L Estimat Glomerular Filtration Rate 44 ML/MIN Hemoglobin A1c 5.7 % Triglycerides Level 139 MG/DL Cholesterol Level 210 MG/DL LDL Cholesterol 118 MG/DL HDL Cholesterol 64.4 MG/DL Cholesterol/HDL Ratio 3.26 RATIO Vitamin B12 Level 947 PG/ML 25-Hydroxy Vitamin D Total 18.1 ng/ML Thyroid Stimulating Hormone 3rd Gen 3.520 uIU/ML Date/Time Source Procedure Growth Status 07/10/17 15:30 Urine Catheterized Urine Urine Culture - Final 50-100,000 CFU/ML MIXED GRAM POSITIVE... Complete Vitals/IOs Vital Signs Date Time Temp Pulse Resp B/P (MAP) Pulse Ox O2 Delivery O2 Flow Rate FiO2 07/13/17 06:04 97.7 89 15 113/52 (72) 07/13/17 04:04 97 07/10/17 18:34 Room Air Intake and Output 07/13/17 07/13/17 07/14/17 08:00 16:00 00:00 Intake Total 60 ml Balance 60 ml Assessment & Plan Problem List: (1) Alzheimer's dementia with behavioral disturbance ICD Codes: G30.9 - Alzheimer's disease, unspecified; F02.81 - Dementia in other diseases classified elsewhere with behavioral disturbance (2) Dementia in other diseases classified elsewhere with behavioral disturbance ICD Codes: F02.81 - Dementia in other diseases classified elsewhere with behavioral disturbance Assessment & Plan Patient at this time continues with confusion, alert and oriented only to person and partially to place believing she is at a school at times. Patient was noted agitation last evening with poor sleep and consistent with medications. We'll continue to encourage adherence, continue recommendations as per primary medical team. Continue current treatment and add diphenhydramine 50 mg by mouth at bedtime when necessary insomnia.. Discharge planning in progress Justification for Cont. Inpt. At risk for further decompensation if at lower level of care Discharge Planning To return back to her [facility] once psychiatrically and medically stable Liam Powers MD Jul 13, 2017 09:52
[2017-07-13 18:00] VITALS: BP 133/71; PULSE 89; RESP 16; TEMP 97.1; O2SAT 90
[2017-07-13] MEDS: ATORVASTATIN 10 MG TAB PO SCH (20:28)
[2017-07-13] MEDS: diphenhydrAMINE HCL 50 MG CAP PO PRN (20:28)
[2017-07-14 06:05] VITALS: BP 159/71; PULSE 82; RESP 17; TEMP 97.6; O2SAT 95
[2017-07-14] MEDS: CITALOPRAM HYDROBROMIDE 20 MG TAB PO SCH (08:08)
[2017-07-14] MEDS: LISINOPRIL 5 MG TAB PO SCH (08:09)
[2017-07-14] MEDS: SULFAMETHOXAZOLE-TRIMETHOPRIM DS 800-160 MG TAB PO SCH ×2 (08:09→20:40)
[2017-07-14] MEDS: FAMOTIDINE 20 MG TAB PO SCH ×2 (08:09→20:28)
[2017-07-14] MEDS: TIMOLOL MALEATE 0.5% OPHT SOLN 5 ML BTL LEFT EYE SCH ×2 (08:09→20:27)
[2017-07-14] MEDS: QUEtiapine FUMARATE 25 MG TAB PO SCH ×2 (08:09→20:27)
[2017-07-14 10:51] LABS: BICARBONATE 22.6 MEQ/L (21.0-32.0); CALCIUM 9.2 MG/DL (8.5-10.1); CREATININE 2.47 MG/DL (0.50-1.00)
[2017-07-14] MEDS ORDERED: LISI-519 PO (12:04)
[2017-07-14] MEDS ORDERED: SULF1TAB23 PO (12:04)
[2017-07-14] MEDS ORDERED: LIPI10TA PO (12:04)
[2017-07-14] MEDS ORDERED: CELE20TA PO (12:04)
[2017-07-14] MEDS ORDERED: SERO25TA PO (12:04)
[2017-07-14] MEDS ORDERED: FAMO20TA2 PO (12:04)
--- NOTE | 2017-07-14 16:12 | HHI.PYPN ---
Subjective Remarks Patient seen for follow-up, chart reviewed. Discussion with nursing staff reported that the patient has been compliant with medications, calm, slept well and continues to require maximum assist. Patient was found sitting on hospital chair in day room, calm and cooperative, continues to be confused and oriented only to person and partially to place (hospital). She reverts back to thinking she is at a school at times but noted to be in good spirits. She reports having slept well, no physical complaints at this time, states eating well. She denies any AH or paranoid ideations. Patient was taken to mental health court where design assistant ordered a continuance. Patient likely for discharge soon but as per primary medical team will require IV fluids with follow up labs tomorrow AM due to elevated creatinine. Review of Systems Except as stated in HPI: all other systems reviewed are Neg Mental Status Examination Appearance: Disheveled Consciousness: Alert Orientation: Person Motor Activity: Abnormal gait Speech: Slow, Other (low-volume) Language: Perseveration Fund of Knowledge: Inadequate Attention and Concentration: Inadequate Memory: Impaired Mood: Appropriate, Other ("depressed") Affect: Appropriate Thought Process & Associations: Loose associations, Tangential Thought Content: Bizarre thinking, Delusional Hallucination Type: None Delusion Type: Paranoid (denies today) Suicidal Ideation: Yes (denies today) Suicidal Plan: No Suicidal Intention: No Homicidal Ideation: No Homicidal Plan: No Homicidal Intention: No Insight: Poor Judgment: Poor Results Labs labs reviewed Test 07/14/17 08:58 Blood Urea Nitrogen 34 MG/DL Creatinine 2.47 MG/DL Random Glucose 110 MG/DL Calcium Level 9.2 MG/DL Sodium Level 138 MEQ/L Potassium Level 4.0 MEQ/L Chloride Level 104 MEQ/L Carbon Dioxide Level 22.6 MEQ/L Anion Gap 11 MEQ/L Estimat Glomerular Filtration Rate 19 ML/MIN Date/Time Source Procedure Growth Status 07/10/17 15:30 Urine Catheterized Urine Urine Culture - Final 50-100,000 CFU/ML MIXED GRAM POSITIVE... Complete Vitals/IOs Vital Signs Date Time Temp Pulse Resp B/P (MAP) Pulse Ox O2 Delivery O2 Flow Rate FiO2 07/14/17 06:05 97.6 82 17 159/71 (100) 95 07/10/17 18:34 Room Air Intake and Output 1/407/14/17 07/15/17 08:00 16:00 00:00 Intake Total 120 ml 120 ml Balance 120 ml 120 ml Assessment & Plan Problem List: (1) Alzheimer's dementia with behavioral disturbance ICD Codes: G30.9 - Alzheimer's disease, unspecified; F02.81 - Dementia in other diseases classified elsewhere with behavioral disturbance (2) Dementia in other diseases classified elsewhere with behavioral disturbance ICD Codes: F02.81 - Dementia in other diseases classified elsewhere with behavioral disturbance Assessment & Plan Patient continues with baseline confusion, A&O x [address] No behavioral dyscontrol recently, compliant with treatment. Elevated renal function, recommendations per primary medical team for IV hydration which patient will be transferred to medical/psychiatry unit for IV fluids and follow up labs. Continue current treatment. Discharge planning in progress. Justification for Cont. Inpt. At risk for further decompensation at lower level of care. Liam Powers MD Jul 14, 2017 16:12
[2017-07-14] MEDS ORDERED: SODIUM CHLORID 0.9% 500 ML INJ 500 ML IV ONE (16:30)
[2017-07-14 17:41] VITALS: BP 132/78; PULSE 76; RESP 16; TEMP 97.5; O2SAT 96
--- NOTE | 2017-07-14 17:51 | HHI.PR ---
Subjective Remarks Follow-up on 81-year-old female with history of dementia, HTN, HLD, and decreased renal function. Patient seen and examined sitting up to a chair having dinner with nurse at bedside. Patient is very talkative today with roommate as well as staff members. Her thoughts continued to be very disorganized and is oriented only to self. She denies any headache, fever, chills, nausea, vomiting, diarrhea. Patient denies any dysuria, shortness of breath, or cough. 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 She goes on to tell the nurse and night that she constantly handles people and large man causing the bruises on her hands and arms. Objective Vitals Vital Signs Date Time Temp Pulse Resp B/P (MAP) Pulse Ox O2 Delivery O2 Flow Rate FiO2 07/14/17 17:41 97.5 76 16 132/78 (96) 96 07/14/17 06:05 97.6 82 17 159/71 (100) 95 07/13/17 18:00 97.1 89 16 133/71 (91) 90 I/O 07/13/17 07/13/17 07/13/17 07/14/17 07/14/17 07/14/17 07:00 15:00 23:00 07:00 15:00 23:00 Intake Total 60 ml 0 ml 480 ml 240 ml Balance 60 ml 0 ml 480 ml 240 ml Intake Oral 60 ml 0 ml 480 ml 240 ml # Voids 0 3 # Bowel Movements 1 Result Diagram: 07/12/17 1105 07/14/17 0858 Imaging Last Impressions Pelvis CT 07/12/17 0000 Signed Impressions: Service Date/Time: Wednesday, July 12, 2017 10:40 - CONCLUSION: No definite fracture is seen for technique. Cash Vergara MD Head CT 07/12/17 0000 Signed Impressions: Service Date/Time: Wednesday, July 12, 2017 10:36 - CONCLUSION: Slight atrophic and small vessel ischemic changes without any evidence for acute hemorrhage or mass effect. Cash Vergara MD Chest X-Ray 07/10/17 1452 Signed Impressions: Service Date/Time: Monday, July 10, 2017 15:28 - CONCLUSION: No acute cardiopulmonary disease. Cash Vergara MD Objective Remarks GENERAL: This is a well-nourished, well-developed patient, in no apparent distress. SKIN: No rashes or lesions. Bilateral hand and forearm scattered ecchymotic areas. Cool and dry. HEAD: Atraumatic. Normocephalic. No temporal or scalp tenderness. EYES: Pupils equal round and reactive. Extraocular motions intact. No injection or drainage. ENT: Nose without bleeding, purulent drainage or septal hematoma. Airway patent. NECK: Trachea midline. CARDIOVASCULAR: Regular rate and rhythm without murmurs, gallops, or rubs. RESPIRATORY: Bilateral anterior and posterior breath sounds clear to auscultation. GASTROINTESTINAL: Abdomen soft, non-tender, nondistended. No guarding. MUSCULOSKELETAL: Extremities without clubbing, cyanosis, or edema. No joint tenderness, effusion, or edema noted. NEUROLOGICAL: Awake and alert. Oriented to self. Bilateral upper and lower strength +5, moves all extremities spontaneously and to command. No facial droop, speech is clear. A/P Assessment and Plan 81-year-old female patient with history of dementia and behavioral disturbance admitted to psychiatric unit for suicidal ideation. Medicine has been consultation for management of chronic medical problems. Dementia and behavioral disturbance -Psych had plans to discharge patient back to [facility] today, however placed on hold and transferred back to medical psych unit due to decreased renal function. Decreased renal function - Labwork from today with BUN 34, creatinine 2.47, GFR 19, most likely due to poor PO intake. - Will transfer back to medical psych unit for IV hydration NS @75ml/hr for 500ml total as patient is not drinking much PO - Continue to encourage oral fluids - Monitor for fluid overload - Recheck renal function tomorrow - Discontinue lisinopril, start amlodipine for blood pressure control. Fall unwitnessed - Head CT and Abd/pelvis CT negative for fracture or bleed. - Fall precautions - Continue fall precautions HTN, fluctuates - BP this morning 159/71, later this afternoon 132/78 - Discontinue lisinopril secondary to decreased renal function, start amlodipine - clonodine prn - Continue trending BP HLD - continue statin UTI - Culture and sensitivity with mixed gram-positive organisms probably contaminated - On Bactrim end date placed for 07/16, denies urinary symptoms, afebrile DVT prop - Early ambulation Patient was discussed with nurse in 2500 unit and nurse and med psych unit. Angle [place] Jul 14, 2017 17:51
[2017-07-14] MEDS: diphenhydrAMINE HCL 50 MG CAP PO PRN (20:26)
[2017-07-14] MEDS: ATORVASTATIN 10 MG TAB PO SCH (20:26)
[2017-07-14] MEDS: LORazepam 0.5 MG TAB PO PRN (20:27)
[2017-07-15 06:13] VITALS: BP 159/70; PULSE 81; RESP 16; TEMP 97.6; O2SAT 93
--- NOTE | 2017-07-15 07:55 | HHI.PR ---
Subjective Remarks Follow-up on 81-year-old female with history of dementia, HTN, HLD, and decreased renal function. Patient seen and examined sitting up eating breakfast. She denies any fevers, chills, N/V/D. She is oriented X2. She repots that she has been trying to drink more fluids. She does not have any concerns. I explain to we are checking her renal function to try and get her back to her [facility]. Nurse repots stool this AM with blood in it, no other bleeding reported. Objective Vitals Vital Signs Date Time Temp Pulse Resp B/P (MAP) Pulse Ox O2 Delivery O2 Flow Rate FiO2 07/15/17 06:13 97.6 81 16 159/70 (99) 93 07/14/17 17:41 97.5 76 16 132/78 (96) 96 I/O 07/14/17 07/14/17 07/14/17 07/15/17 07/15/17 07/15/17 07:00 15:00 23:00 07:00 15:00 23:00 Intake Total 100 ml 240 ml 320 ml 0 ml Output Total 1 ml Balance 100 ml 240 ml 319 ml 0 ml Intake Oral 100 ml 240 ml 320 ml 0 ml Output Urine Total 1 ml # Voids 3 1 # Bowel Movements 1 2 1 Result Diagram: 07/12/17 1105 07/14/17 0858 Imaging Last Impressions Pelvis CT 07/12/17 0000 Signed Impressions: Service Date/Time: Wednesday, July 12, 2017 10:40 - CONCLUSION: No definite fracture is seen for technique. Cash Vergara MD Head CT 07/12/17 0000 Signed Impressions: Service Date/Time: Wednesday, July 12, 2017 10:36 - CONCLUSION: Slight atrophic and small vessel ischemic changes without any evidence for acute hemorrhage or mass effect. Cash Vergara MD Chest X-Ray 07/10/17 1452 Signed Impressions: Service Date/Time: Monday, July 10, 2017 15:28 - CONCLUSION: No acute cardiopulmonary disease. Cash Vergara MD Objective Remarks GENERAL: This is a well-nourished, well-developed patient, in no apparent distress. SKIN: No rashes or lesions. Bilateral hand and forearm scattered ecchymotic areas. Cool and dry. HEAD: Atraumatic. Normocephalic. No temporal or scalp tenderness. EYES: Pupils equal round and reactive. Extraocular motions intact. No injection or drainage. ENT: Nose without bleeding, purulent drainage or septal hematoma. Airway patent. NECK: Trachea midline. CARDIOVASCULAR: Regular rate and rhythm without murmurs, gallops, or rubs. RESPIRATORY: Bilateral anterior and posterior breath sounds clear to auscultation. GASTROINTESTINAL: Abdomen soft, non-tender, nondistended. No guarding. MUSCULOSKELETAL: Extremities without clubbing, cyanosis, or edema. No joint tenderness, effusion, or edema noted. NEUROLOGICAL: Awake and alert. Oriented to self. Bilateral upper and lower strength +5, moves all extremities spontaneously and to command. No facial droop, speech is clear. A/P Assessment and Plan 81-year-old female patient with history of dementia and behavioral disturbance admitted to psychiatric unit for suicidal ideation. Medicine has been consultation for management of chronic medical problems. Dementia and behavioral disturbance -Psych had plans to discharge patient back to [facility] today, however placed on hold and transferred back to medical psych unit due to decreased renal function. Decreased renal function - BUN 34--->51 creatinine 2.47--->2.81 GFR 19--->16 Renal function worse this AM - 500ml NS bolus last PM. Continue gentle hydration NS @ 50ml/hr, check renal US, consult nephrology appreciate recommendations - Continue to encourage oral fluids - Monitor for fluid overload - Discontinue lisinopril, start amlodipine for blood pressure control. Fall unwitnessed - Head CT and Abd/pelvis CT negative for fracture or bleed. - Fall precautions - Continue fall precautions HTN, fluctuates - BP this morning 156/70 - Discontinued lisinopril secondary to decreased renal function, started amlodipine - clonodine prn - Continue trending BP Blood in stool - H&H have been stable and VVS - Will check Hemoccult - Recheck H&H tomorrow - Monitor for bleeding, likely hemorrhoids. - Not on any blood thinners. - Did take a look at stool on bed pad, surrounding brown stool, does not appear to be blood to me rather soaking of stool on pad. HLD - continue statin UTI - Culture and sensitivity with mixed gram-positive organisms probably contaminated - On Bactrim D/C today, denies urinary symptoms, afebrile DVT prop - Early ambulation Patient was discussed with nurse in 2500 unit and nurse and med psych unit. Angle [place] Jul 15, 2017 07:55
[2017-07-15] MEDS: QUEtiapine FUMARATE 25 MG TAB PO SCH ×2 (08:16→21:01)
[2017-07-15] MEDS: amLODIPine BESYLATE 5 MG TAB PO SCH (08:16)
[2017-07-15] MEDS: TIMOLOL MALEATE 0.5% OPHT SOLN 5 ML BTL LEFT EYE SCH ×2 (08:16→21:00)
[2017-07-15] MEDS: CITALOPRAM HYDROBROMIDE 20 MG TAB PO SCH (08:16)
[2017-07-15] MEDS: FAMOTIDINE 20 MG TAB PO SCH ×2 (08:21→21:02)
[2017-07-15 08:30] LABS: BICARBONATE 19.2 MEQ/L (21.0-32.0); CALCIUM 8.5 MG/DL (8.5-10.1); CREATININE 2.81 MG/DL (0.50-1.00)
[2017-07-15] MEDS ORDERED: POTASSIUM CHLORIDE 20 MEQ CONTROLLED RELEASE TAB PO ONE ×2 (08:45→10:30)
[2017-07-15] MEDS: SODIUM CHLOR 0.9% 1000 ML INJ 1,000 ML IV SCH (09:40)
--- NOTE | 2017-07-15 10:11 | HHI.PYPN ---
Subjective Remarks Discussion she staff reported the patient had been compliant pleasant and cooperative. Patient was found lying in hospital bed, cooperative interview today. Noted to be in good spirits. Patient states that she is feeling "okay" reported having slept well, her mood general has been okay, reports feeling occasionally depressed when she is upset but not having any thoughts of self- harm or suicide ideations. Patient reports being alert and oriented only to person and place but not to time. Patient denies any perceptual disturbances or any delusions. Patient currently not having any behavioral disturbances, has not had any episodes of agitation and is currently psychiatrically clear for discharge but due to current lab abnormalities which indicated patient with worsening renal function is continue to be followed by medical team for now and may be be transferred onto the medical floor for further evaluation and management. Review of Systems Except as stated in HPI: all other systems reviewed are Neg Mental Status Examination Appearance: Appropriate Consciousness: Alert Orientation: Person Motor Activity: Abnormal gait Speech: Unremarkable Language: Adequate Fund of Knowledge: Inadequate Attention and Concentration: Adequate Memory: Impaired Mood: Appropriate, Other ("depressed") Affect: Appropriate Thought Process & Associations: Tangential Thought Content: Appropriate Hallucination Type: None Delusion Type: None Suicidal Ideation: No Suicidal Plan: No Suicidal Intention: No Homicidal Ideation: No Homicidal Plan: No Homicidal Intention: No Insight: Fair Judgment: Impulsive Results Labs Labs reviewed Test 07/15/17 07:45 Blood Urea Nitrogen 51 MG/DL Creatinine 2.81 MG/DL Random Glucose 89 MG/DL Calcium Level 8.5 MG/DL Sodium Level 138 MEQ/L Potassium Level 3.4 MEQ/L Chloride Level 106 MEQ/L Carbon Dioxide Level 19.2 MEQ/L Anion Gap 13 MEQ/L Estimat Glomerular Filtration Rate 16 ML/MIN Date/Time Source Procedure Growth Status 07/15/17 09:30 Stool Stool Stool Occult Blood (JUAN) Pending Received 07/10/17 15:30 Urine Catheterized Urine Urine Culture - Final 50-100,000 CFU/ML MIXED GRAM POSITIVE... Complete Vitals/IOs Vital Signs Date Time Temp Pulse Resp B/P (MAP) Pulse Ox O2 Delivery O2 Flow Rate FiO2 07/15/17 06:13 97.6 81 16 159/70 (99) 93 Intake and Output 07/15/17 07/15/17 07/15/17 07:59 15:59 23:59 Intake Total 240 ml Balance 240 ml Assessment & Plan Problem List: (1) Alzheimer's dementia with behavioral disturbance ICD Codes: G30.9 - Alzheimer's disease, unspecified; F02.81 - Dementia in other diseases classified elsewhere with behavioral disturbance (2) Dementia in other diseases classified elsewhere with behavioral disturbance ICD Codes: F02.81 - Dementia in other diseases classified elsewhere with behavioral disturbance Assessment & Plan Patient at this time noted to have stable mood, not endorsing any perceptual disturbances or any paranoid delusions. Patient has not had any behavioral disturbances recently and no episodes of agitation as a compliant with treatment. Patient currently with elevated creatinine upon lab work continues to be followed by medical team. Patient may require transfer to the medical floor further reduction management this patient currently psychiatrically cleared for discharge. Will await recommendations by medical team for now. Discharge planning in progress Justification for Cont. Inpt. At risk for further decompensation if at lower level of care Liam Powers MD Jul 15, 2017 10:11
--- NOTE | 2017-07-15 11:26 | RADRPT ---
EXAM DATE/TIME: 07/15/2017 10:17 [facility] COMPARISON: No previous studies available for comparison. INDICATIONS : Increased BUN/creatinine. MEDICAL HISTORY : Osteoporosis. Hypertension. Glaucoma. Dementia. Confusion. SURGICAL HISTORY : Hysterectomy. Blood transfusions. ENCOUNTER: Initial ACUITY: 1 day PAIN SCORE: 0/10 LOCATION: Bilateral flank MEASUREMENTS: RIGHT KIDNEY: 10.6 x 4.1 x 4.0 cm LEFT KIDNEY: 10.3 x 4.3 x 5.3 cm FINDINGS: Ultrasound of the kidneys demonstrates increased echogenicity of the cortex compatible with medical r enal disease. No hydronephrosis or mass lesions are identified. The bladder demonstrates no abnormali ty. CONCLUSION: Echogenic kidneys bilaterally compatible with medical renal disease. Celestino Lopez MD on July 15, 2017 at 11:23 Board Certified Radiologist. This report was verified electronically.
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
[2017-07-15 18:00] VITALS: BP 161/70; PULSE 80; RESP 16; TEMP 98.4; O2SAT 93
[2017-07-15] MEDS: diphenhydrAMINE HCL 50 MG CAP PO PRN (21:01)
[2017-07-15] MEDS: ATORVASTATIN 10 MG TAB PO SCH (21:01)
[2017-07-15] MEDS: LORazepam 0.5 MG TAB PO PRN (21:01)
[2017-07-16] MEDS: SODIUM CHLOR 0.9% 1000 ML INJ 1,000 ML IV SCH (05:00)
[2017-07-16 05:45] VITALS: BP 179/94; PULSE 84; RESP 16; TEMP 97.5; O2SAT 94
--- NOTE | 2017-07-16 08:17 | HHI.PR ---
Subjective Remarks Feels tires. No nausea or vomiting. Denies chest pain or sob. No fever or chills. Encouraged PO intake. Objective Vitals Vital Signs Date Time Temp Pulse Resp B/P (MAP) Pulse Ox O2 Delivery O2 Flow Rate FiO2 07/16/17 05:45 97.5 84 16 179/94 (122) 94 07/15/17 18:00 98.4 80 16 161/70 (100) 93 I/O 07/15/17 07/15/17 07/15/17 07/16/17 07/16/17 07/16/17 07:00 15:00 23:00 07:00 15:00 23:00 Intake Total 0 ml 240 ml 300 ml Balance 0 ml 240 ml 300 ml Intake Oral 0 ml 240 ml 300 ml # Voids 1 2 # Bowel Movements 1 2 Result Diagram: 07/16/17 0755 07/15/17 0745 Imaging Last Impressions Renal Ultrasound 07/15/17 0000 Signed Impressions: Service Date/Time: Saturday, July 15, 2017 10:17 - CONCLUSION: Echogenic kidneys bilaterally compatible with medical renal disease. Celestino Lopez MD Pelvis CT 07/12/17 0000 Signed Impressions: Service Date/Time: Wednesday, July 12, 2017 10:40 - CONCLUSION: No definite fracture is seen for technique. Cash Vergara MD Head CT 07/12/17 0000 Signed Impressions: Service Date/Time: Wednesday, July 12, 2017 10:36 - CONCLUSION: Slight atrophic and small vessel ischemic changes without any evidence for acute hemorrhage or mass effect. Cash Vergara MD Chest X-Ray 07/10/17 1452 Signed Impressions: Service Date/Time: Monday, July 10, 2017 15:28 - CONCLUSION: No acute cardiopulmonary disease. Cash Vergara MD Objective Remarks GENERAL: This is a well-nourished, well-developed patient, in no apparent distress. CARDIOVASCULAR: Regular rate and rhythm without murmurs, gallops, or rubs. RESPIRATORY: Bilateral anterior and posterior breath sounds clear to auscultation. GASTROINTESTINAL: Abdomen soft, non-tender, nondistended. No guarding. MUSCULOSKELETAL: Extremities without clubbing, cyanosis, or edema. No joint tenderness, effusion, or edema noted. NEUROLOGICAL: Awake and alert. Oriented to self. Bilateral upper and lower strength +5, moves all extremities spontaneously and to command. No facial droop, speech is clear. A/P Assessment and Plan 81-year-old female patient with history of dementia and behavioral disturbance admitted to psychiatric unit for suicidal ideation. Medicine has been consultation for management of chronic medical problems. Dementia and behavioral disturbance -Psych had plans to discharge patient back to [facility] today, however placed on hold and transferred back to medical psych unit due to decreased renal function. Decreased renal function worsening - BUN 34--->51 creatinine 2.47--->2.81 GFR 19--->16 - Received 500ml NS bolus. Continue gentle hydration NS @ 50ml/hr, renal US with bilateral echogenic kidneys consistent with medical disease, consult nephrology appreciate recommendations - Continue to encourage oral fluids - Monitor for fluid overload - Discontinue lisinopril, started amlodipine for blood pressure control. Fall unwitnessed - Head CT and Abd/pelvis CT negative for fracture or bleed. - Fall precautions - Continue fall precautions HTN, fluctuates - BP this morning 156/70 - Discontinued lisinopril secondary to decreased renal function, started amlodipine - clonodine prn - Continue trending BP Blood in stool - H&H have been stable and VVS - Will check Hemoccult - Recheck H&H tomorrow - Monitor for bleeding, likely hemorrhoids. - Not on any blood thinners. - Did take a look at stool on bed pad, surrounding brown stool, does not appear to be blood to me rather soaking of stool on pad. HLD - continue statin UTI - Culture and sensitivity with mixed gram-positive organisms probably contaminated - On Bactrim D/C today, denies urinary symptoms, afebrile DVT prop - Early ambulation Discussed with the patient, nurse Ayleen Amaya MD Jul 16, 2017 08:17
[2017-07-16] MEDS: TIMOLOL MALEATE 0.5% OPHT SOLN 5 ML BTL LEFT EYE SCH ×2 (08:19→21:00)
[2017-07-16] MEDS: amLODIPine BESYLATE 5 MG TAB PO SCH (08:20)
[2017-07-16] MEDS: CITALOPRAM HYDROBROMIDE 20 MG TAB PO SCH (08:20)
[2017-07-16] MEDS: FAMOTIDINE 20 MG TAB PO SCH ×2 (08:20→21:00)
[2017-07-16] MEDS: QUEtiapine FUMARATE 25 MG TAB PO SCH ×2 (08:20→20:59)
--- NOTE | 2017-07-16 12:30 | HHI.NPPN ---
Objective Data Data 07/16/17 07/17/17 19:00 07:00 Intake Total 120 ml Balance 120 ml Intake Oral 120 ml Vital Signs Date Time Temp Pulse Resp B/P (MAP) Pulse Ox O2 Delivery O2 Flow Rate FiO2 07/16/17 05:45 97.5 84 16 179/94 (122) 94 07/15/17 18:00 98.4 80 16 161/70 (100) 93 -: 07/16/17 0755 07/15/17 0745 Physical Exam General Appearance: Well Developed Neck Neck Exam: Neck Supple Pulmonary Resp Exam: Decreased Bases Cardiology CV Exam: Regular Gastrointestinal/Abdomen GI Exam: Soft, Non-Tender Extremeties Extremities Exam: No Edema Assessment/Plan Problem List: (1) Acute renal failure ICD Codes: N17.9 - Acute kidney failure, unspecified Plan: She has normal renal function at baseline. ALDO most likely due to rapid correction of blood pressure, may have suffered hypoperfusion injury In addition she was on Bactrim which can cause increased serum levels of creatinine; it was stopped She is making urine US negative for obstruction Trial of IVF, on 0.9% at 50. Mild acidosis, monitor for now Repeat labs today K was replaced. (2) HTN (hypertension) ICD Codes: I10 - Essential (primary) hypertension Plan: She is on Norvasc; JOELLEN has been stopped (3) UTI (urinary tract infection) ICD Codes: N39.0 - Urinary tract infection, site not specified Status: Acute Plan: Was on Bactrim; may have had sufficient therapy Repeat culture is negative (4) Dementia in other diseases classified elsewhere with behavioral disturbance ICD Codes: F02.81 - Dementia in other diseases classified elsewhere with behavioral disturbance Plan: Psych to manage Problem Qualifiers (1) UTI (urinary tract infection): Qualified Codes: N30.00 - Acute cystitis without hematuria Juno Damon MD Jul 16, 2017 12:30
[2017-07-16 12:58] LABS: BICARBONATE 21.8 MEQ/L (21.0-32.0); CALCIUM 8.9 MG/DL (8.5-10.1); CREATININE 1.65 MG/DL (0.50-1.00)
--- NOTE | 2017-07-16 13:28 | HHI.PYPN ---
Subjective Remarks No change Review of Systems ROS Limitations: Clinical Condition Except as stated in HPI: all other systems reviewed are Neg Mental Status Examination Appearance: Appropriate Consciousness: Alert Orientation: Person Motor Activity: Abnormal gait Speech: Unremarkable Language: Adequate Fund of Knowledge: Inadequate Attention and Concentration: Adequate Memory: Impaired Mood: Appropriate, Other ("depressed") Affect: Appropriate Thought Process & Associations: Tangential Thought Content: Appropriate Hallucination Type: None Delusion Type: None Suicidal Ideation: No Suicidal Plan: No Suicidal Intention: No Homicidal Ideation: No Homicidal Plan: No Homicidal Intention: No Insight: Fair Judgment: Impulsive Results Labs Test 07/16/17 07:55 07/16/17 11:35 Hemoglobin 12.5 GM/DL Blood Urea Nitrogen 46 MG/DL Creatinine 1.65 MG/DL Random Glucose 107 MG/DL Calcium Level 8.9 MG/DL Sodium Level 140 MEQ/L Potassium Level 3.0 MEQ/L Chloride Level 108 MEQ/L Carbon Dioxide Level 21.8 MEQ/L Anion Gap 10 MEQ/L Estimat Glomerular Filtration Rate 30 ML/MIN Date/Time Source Procedure Growth Status 07/15/17 09:30 Stool Stool Stool Occult Blood (JUAN) - Final HEMOCCULT NEGATIVE Complete 07/10/17 15:30 Urine Catheterized Urine Urine Culture - Final 50-100,000 CFU/ML MIXED GRAM POSITIVE... Complete Vitals/IOs Vital Signs Date Time Temp Pulse Resp B/P (MAP) Pulse Ox O2 Delivery O2 Flow Rate FiO2 07/16/17 05:45 97.5 84 16 179/94 (122) 94 Intake and Output 07/16/17 07/16/17 07/17/17 08:00 16:00 00:00 Intake Total 120 ml Balance 120 ml Assessment & Plan Problem List: (1) Alzheimer's dementia with behavioral disturbance ICD Codes: G30.9 - Alzheimer's disease, unspecified; F02.81 - Dementia in other diseases classified elsewhere with behavioral disturbance (2) Dementia in other diseases classified elsewhere with behavioral disturbance ICD Codes: F02.81 - Dementia in other diseases classified elsewhere with behavioral disturbance Assessment & Plan Continue current treatment plan Estimated LOS: days Justification for Cont. Inpt. Likely to decompensate at lower level of care. Solis Gonzalez MD Jul 16, 2017 13:28
[2017-07-16] MEDS: LORazepam 0.5 MG TAB PO PRN (13:46)
[2017-07-16] MEDS ORDERED: POTASSIUM CHLORIDE 10 MEQ CONTROLLED RELEASE TAB PO ONE (15:00)
[2017-07-16 18:00] VITALS: BP 150/69; PULSE 79; RESP 18; TEMP 98.4; O2SAT 93
[2017-07-16] MEDS: ATORVASTATIN 10 MG TAB PO SCH (21:00)
[2017-07-17] MEDS: SODIUM CHLOR 0.9% 1000 ML INJ 1,000 ML IV SCH ×2 (01:25→20:00)
[2017-07-17] MEDS: LORazepam 2 MG/ML VIAL IM PRN (04:44)
[2017-07-17] MEDS: cloNIDine HCL 0.1 MG TAB PO PRN ×2 (04:54→18:25)
[2017-07-17 05:59] LABS: AUTOMATED NEUTROPHIL # 5.9 TH/MM3 (1.8-7.7); BASOPHIL % 0.6 % (0.0-2.0); EOSINOPHIL # 0.2 TH/MM3 (0-0.4); HEMATOCRIT 36.8 % (35.0-46.0); HEMOGLOBIN 12.3 GM/DL (11.6-15.3); MEAN CELL VOLUME 91.8 FL (80.0-100.0); MEAN CORPUSCULAR HEMOGLOBIN 30.6 PG (27.0-34.0); MEAN CORPUSCULAR HGB CONC 33.3 % (32.0-36.0); MEAN PLATELET VOLUME 10.9 FL (7.0-11.0); MONO % 12.3 % (0.0-8.0); NEUT % 72.1 % (16.0-70.0); PLATELET COUNT 258 TH/MM3 (150-450); RED BLOOD COUNT 4.01 MIL/MM3 (4.00-5.30); RED CELL DISTRIBUTION WIDTH 14.1 % (11.6-17.2); WHITE BLOOD COUNT 8.1 TH/MM3 (4.0-11.0)
[2017-07-17 06:21] LABS: BICARBONATE 21.7 MEQ/L (21.0-32.0); CALCIUM 8.6 MG/DL (8.5-10.1); CREATININE 1.07 MG/DL (0.50-1.00)
[2017-07-17 07:11] VITALS: BP 229/90; PULSE 80; RESP 18; TEMP 97.5; O2SAT 93
[2017-07-17] MEDS ORDERED: POTASSIUM CHLORIDE 10 MEQ CONTROLLED RELEASE TAB PO ONE (09:15)
--- NOTE | 2017-07-17 09:46 | HHI.PR ---
Subjective Remarks NO NEW COMPLAINTS KIDNEY FUNCTIONS ARE MUCH IMPROVED DW RN AND PT Objective Vitals Vital Signs Date Time Temp Pulse Resp B/P (MAP) Pulse Ox O2 Delivery O2 Flow Rate FiO2 07/17/17 07:11 97.5 80 18 229/90 (136) 93 07/16/17 18:00 98.4 79 18 150/69 (96) 93 I/O 07/16/17 07/16/17 07/16/17 07/17/17 07/17/17 07/17/17 07:00 15:00 23:00 07:00 15:00 23:00 Intake Total 360 ml 240 ml 160 ml Balance 360 ml 240 ml 160 ml Intake Oral 360 ml 240 ml 160 ml # Voids 2 5 2 # Bowel Movements 2 1 2 Result Diagram: 07/17/1751707/17/17517 Other Results Laboratory Tests Test 07/15/17 07:45 07/15/17 09:30 07/15/17 11:57 07/16/17 07:55 Blood Urea Nitrogen 51 MG/DL Creatinine 2.81 MG/DL Random Glucose 89 MG/DL Calcium Level 8.5 MG/DL Sodium Level 138 MEQ/L Potassium Level 3.4 MEQ/L Chloride Level 106 MEQ/L Carbon Dioxide Level 19.2 MEQ/L Anion Gap 13 MEQ/L Estimat Glomerular Filtration Rate 16 ML/MIN Stool C. difficile Toxin (PCR) NEGATIVE Stl C. difficile Toxin Epiderm 027 PRESUMPTIVE NEGATIVE Hematocrit 37.1 % Hemoglobin 12.5 GM/DL Test 07/16/17 11:35 07/17/17 05:18 Blood Urea Nitrogen 46 MG/DL 38 MG/DL Creatinine 1.65 MG/DL 1.07 MG/DL Random Glucose 107 MG/DL 122 MG/DL Calcium Level 8.9 MG/DL 8.6 MG/DL Sodium Level 140 MEQ/L 145 MEQ/L Potassium Level 3.0 MEQ/L 3.2 MEQ/L Chloride Level 108 MEQ/L 113 MEQ/L Carbon Dioxide Level 21.8 MEQ/L 21.7 MEQ/L Anion Gap 10 MEQ/L 10 MEQ/L Estimat Glomerular Filtration Rate 30 ML/MIN 49 ML/MIN White Blood Count 8.1 TH/MM3 Red Blood Count 4.01 MIL/MM3 Hemoglobin 12.3 GM/DL Hematocrit 36.8 % Mean Corpuscular Volume 91.8 FL Mean Corpuscular Hemoglobin 30.6 PG Mean Corpuscular Hemoglobin Concent 33.3 % Red Cell Distribution Width 14.1 % Platelet Count 258 TH/MM3 Mean Platelet Volume 10.9 FL Neutrophils (%) (Auto) 72.1 % Lymphocytes (%) (Auto) 12.0 % Monocytes (%) (Auto) 12.3 % Eosinophils (%) (Auto) 3.0 % Basophils (%) (Auto) 0.6 % Neutrophils # (Auto) 5.9 TH/MM3 Lymphocytes # (Auto) 1.0 TH/MM3 Monocytes # (Auto) 1.0 TH/MM3 Eosinophils # (Auto) 0.2 TH/MM3 Basophils # (Auto) 0.0 TH/MM3 CBC Comment DIFF FINAL Differential Comment Imaging Last Impressions Renal Ultrasound 07/15/17 0000 Signed Impressions: Service Date/Time: Saturday, July 15, 2017 10:17 - CONCLUSION: Echogenic kidneys bilaterally compatible with medical renal disease. Celestino Lopez MD Pelvis CT 07/12/17 0000 Signed Impressions: Service Date/Time: Wednesday, July 12, 2017 10:40 - CONCLUSION: No definite fracture is seen for technique. Cash Vergara MD Head CT 07/12/17 0000 Signed Impressions: Service Date/Time: Wednesday, July 12, 2017 10:36 - CONCLUSION: Slight atrophic and small vessel ischemic changes without any evidence for acute hemorrhage or mass effect. Cash Vergara MD Chest X-Ray 07/10/17 1452 Signed Impressions: Service Date/Time: Monday, July 10, 2017 15:28 - CONCLUSION: No acute cardiopulmonary disease. Cash Vergara MD Objective Remarks GENERAL: AWAKE AND ALERT PLEASANTLY CONFUSED SKIN: Warm and dry. HEAD: Atraumatic. Normocephalic. EYES: Pupils equal and round. No scleral icterus. No injection or drainage. EOMI ENT: No nasal bleeding or discharge. Mucous membranes pink and moist. TONGUE MIDLINE NECK: Trachea midline. No JVD. CARDIOVASCULAR: Regular rate and rhythm. S1, S2 NO S3 OR S4 RESPIRATORY: No accessory muscle use. Clear to auscultation. Breath sounds equal bilaterally. GASTROINTESTINAL: Abdomen soft, non-tender, nondistended. Hepatic and splenic margins not palpable. MUSCULOSKELETAL: Extremities without clubbing, cyanosis, or edema. No obvious deformities. NEUROLOGICAL: Awake and alert. No obvious cranial nerve deficits. Motor grossly within normal limits. 4 out of 5 muscle strength in the arms and legs. Normal speech. PSYCHIATRIC: INAppropriate mood and affect; insight and judgment ABnormal. Procedures NONE Medications and IVs Current Medications Trimethoprim/ Sulfamethoxazole (Bactrim Ds 800-160 Mg) 1 tab ONCE ONCE PO ; Start 07/10/17 at 17:00; Stop 07/10/17 at 17:01; Status DC Haloperidol Lactate (Haldol Inj) 2.5 mg ONCE ONCE IM Last administered on 17:47; Start 07/10/17 at 17:45; Stop 07/10/17 at 17:46; Status DC Haloperidol Lactate (Haldol Inj) 2.5 mg ONCE ONCE IM Last administered on 19:59; Start 07/10/17 at 19:45; Stop 07/10/17 at 19:46; Status DC Trimethoprim/ Sulfamethoxazole (Bactrim Ds 800-160 Mg) 1 tab ONCE ONCE PO Last administered on 07/11/17at 09:37; Start 07/11/17 at 09:30; Stop 07/11/17 at 09: 31; Status DC Lisinopril (Prinivil) 5 mg ONCE ONCE PO Last administered on 07/11/17at 09:37; Start 07/11/17 at 09:30; Stop 07/11/17 at 09:31; Status DC Quetiapine Fumarate (SEROquel) 50 mg ONCE ONCE PO Last administered on at 09:37; Start 07/11/17 at 09:30; Stop 07/11/17 at 09:31; Status DC Alprazolam (Xanax) 0.5 mg ONCE ONCE PO Last administered on 07/11/17at 09:37; Start 07/11/17 at 09:30; Stop 07/11/17 at 09:31; Status DC Lorazepam (Ativan) 0.5 mg Q12H PRN PO MODERATE TO SEVERE ANXIETY Last administered on 07/16/17at 13:46; Start 07/11/17 at 12:15 Lorazepam (Ativan Inj) 0.5 mg Q12H PRN IM MODERATE TO SEVERE ANXIETY Last administered on 07/17/17at 04:44; Start 07/11/17 at 12:15 Diphenhydramine HCl (Benadryl) 50 mg Q6H PRN PO For mild anxiety and/or EPS Last administered on 07/11/17at 16:28; Start 07/11/17 at 12:15 Diphenhydramine HCl (Benadryl Inj) 50 mg Q6H PRN IM For mild anxiety and/or EPS Last administered on 07/16/17at 08:19; Start 07/11/17 at 12:15 Acetaminophen (Tylenol) 650 mg Q4H PRN PO Pain 1-5 or Temp >101F Last administered on 07/12/17at 02:23; Start 07/11/17 at 12:15 Magnesium Hydroxide (Milk Of Magnesia Liq) 30 ml DAILY PRN PO CONSTIPATION; Start 07/11/17 at 12:15 Al Hydrox/Mg Hydrox/Simethicone (Mag-Al Plus Susp Liq) 30 ml Q6H PRN PO DYSPEPSIA; Start 07/11/17 at 12:15 Atorvastatin Calcium (Lipitor) 10 mg HS PO Last administered on 07/16/17at 21:00 ; Start 07/11/17 at 21:00 Famotidine (Pepcid) 20 mg BID PO Last administered on 07/13/17at 09:00; Start 07/11/17 at 21:00; Stop 07/13/17 at 15:14; Status DC Lisinopril (Prinivil) 5 mg DAILY PO Last administered on 07/14/17at 08:09; Start 07/12/17 at 09:00; Stop 07/14/17 at 17:04; Status DC Trimethoprim/ Sulfamethoxazole (Bactrim Ds 800-160 Mg) 1 tab BID PO Last administered on 07/14/17at 20:40; Start 07/11/17 at 21:00; Stop 07/15/17 at 08:48; Status DC Timolol Maleate (Timoptic 0.5% Opt Soln) 1 drop BID LEFT EYE Last administered on 07/16/17at 21:00; Start 07/11/17 at 21:00 Patient Own Medication PT OWN MED: PROLE... DAILY LEFT EYE ; Start 07/12/17 at 09 :00; Status Future Hold Clonidine (Catapres) 0.1 mg Q6H PRN PO SBP> OR = 180, DBP> OR = 100 Last administered on 07/17/17at 04:54; Start 07/11/17 at 13:30 Quetiapine Fumarate (SEROquel) 12.5 mg BID PO Last administered on 07/16/17at 20: 59; Start 07/12/17 at 10:45 Miscellaneous (Pill Splitter) 1 ea UNSCH PRN OTHER SEE LABEL COMMENTS; Start at 10:45 Citalopram Hydrobromide (CeleXA) 10 mg ONCE ONCE PO Last administered on at 11:48; Start 07/12/17 at 11:45; Stop 07/12/17 at 11:46; Status DC Citalopram Hydrobromide (CeleXA) 20 mg DAILY PO Last administered on 07/16/17at 08:20; Start 07/13/17 at 09:00 Diphenhydramine HCl (Benadryl) 50 mg HS PRN PO INSOMNIA Last administered on 07/15/17at 21:01; Start 07/13/17 at 10:00 Famotidine (Pepcid) 10 mg BID PO Last administered on 07/16/17at 21:00; Start 07/13/17 at 21:00 Sodium Chloride 500 ml @ 75 mls/hr BOLUS ONCE IV Last administered on at 16:30; Start 07/14/17 at 16:30; Stop 07/14/17 at 23:09; Status DC Amlodipine Besylate (Norvasc) 5 mg DAILY PO Last administered on 07/16/17at 08:20 ; Start 07/15/17 at 09:00 Potassium Chloride (KCl) 20 meq ONCE ONCE PO Last administered on 07/15/17at 09: 39; Start 07/15/17 at 08:45; Stop 07/15/17 at 08:46; Status DC Sodium Chloride 1,000 ml @ 50 mls/hr Q20H IV Last administered on 07/17/17at 01: 25; Start 07/15/17 at 09:00 Potassium Chloride (KCl) 20 meq ONCE ONCE PO ; Start 07/15/17 at 10:30; Stop 07/15/17 at 10:31; Status UNV Potassium Chloride (KCl) 40 meq ONCE ONCE PO Last administered on 07/16/17at 15: 07; Start 07/16/17 at 15:00; Stop 07/16/17 at 15:02; Status DC Potassium Chloride (KCl) 60 meq ONCE ONCE PO ; Start 07/17/17 at 09:15; Stop 07/17/17 at 09:16; Status DC A/P Assessment and Plan 81-year-old female patient with history of dementia and behavioral disturbance admitted to psychiatric unit for suicidal ideation. Medicine has been consultation for management of chronic medical problems. Dementia and behavioral disturbance -Psych had plans to discharge patient back to [facility], however placed on hold and transferred back to medical psych unit due to decreased renal function. Decreased renal function worsening - BUN 34--->51 creatinine 2.47--->2.81 GFR 19--->16 CR 1.07 NOW - Received 500ml NS bolus. Continue gentle hydration NS @ 50ml/hr, renal US with bilateral echogenic kidneys consistent with medical disease, consult nephrology appreciate recommendations - Continue to encourage oral fluids - Monitor for fluid overload - Discontinue lisinopril, started amlodipine for blood pressure control. Fall unwitnessed - Head CT and Abd/pelvis CT negative for fracture or bleed. - Fall precautions - Continue fall precautions HTN, fluctuates - BP this morning 156/70 - Discontinued lisinopril secondary to decreased renal function, started amlodipine - clonodine prn - Continue trending BP Blood in stool - H&H have been stable and VVS - Will check Hemoccult - Recheck H&H tomorrow - Monitor for bleeding, likely hemorrhoids. - Not on any blood thinners. - Did take a look at stool on bed pad, surrounding brown stool, does not appear to be blood to me rather soaking of stool on pad. HLD - continue statin UTI - Culture and sensitivity with mixed gram-positive organisms probably contaminated - OFF BACTRIM DVT prop - Early ambulation HYPOKALEMIA WILL GIVE 60MEQ KCL ORALLY Discussed with the patient, nurse Discharge Planning AM LABS Eric Marmolejo DO Jul 17, 2017 09:46
[2017-07-17] MEDS: QUEtiapine FUMARATE 25 MG TAB PO SCH ×2 (10:44→20:00)
[2017-07-17] MEDS: amLODIPine BESYLATE 5 MG TAB PO SCH (10:44)
[2017-07-17] MEDS: FAMOTIDINE 20 MG TAB PO SCH ×2 (10:44→20:00)
[2017-07-17] MEDS: CITALOPRAM HYDROBROMIDE 20 MG TAB PO SCH (10:44)
[2017-07-17] MEDS: TIMOLOL MALEATE 0.5% OPHT SOLN 5 ML BTL LEFT EYE SCH ×2 (11:15→20:00)
[2017-07-17 19:00] VITALS: BP 190/80; PULSE 88; RESP 18; TEMP 98.1; O2SAT 94
[2017-07-17] MEDS: ACETAMINOPHEN 325 MG TAB PO PRN (19:57)
[2017-07-17 20:00] VITALS: BP 181/70
[2017-07-17] MEDS: ATORVASTATIN 10 MG TAB PO SCH (20:00)
[2017-07-17 22:00] VITALS: BP 161/67; PULSE 67; RESP 18; O2SAT 95
[2017-07-18 06:25] VITALS: BP 150/78; PULSE 77; RESP 16; TEMP 98.3; O2SAT 93
[2017-07-18] MEDS: amLODIPine BESYLATE 5 MG TAB PO SCH (09:36)
[2017-07-18] MEDS: TIMOLOL MALEATE 0.5% OPHT SOLN 5 ML BTL LEFT EYE SCH (09:36)
[2017-07-18] MEDS: CITALOPRAM HYDROBROMIDE 20 MG TAB PO SCH (09:36)
[2017-07-18] MEDS: FAMOTIDINE 20 MG TAB PO SCH (09:36)
[2017-07-18] MEDS: QUEtiapine FUMARATE 25 MG TAB PO SCH (09:36)
--- NOTE | 2017-07-18 09:57 | HHI.NPPN ---
Subjective Renal Failure: Acute Interval History She is awake and alert. Refused lab draw today. No new concerns. ([place]) Objective Data Data 07/18/17 07/19/17 19:00 07:00 Intake Total 240 ml Balance 240 ml Intake Oral 240 ml Vital Signs Date Time Temp Pulse Resp B/P (MAP) Pulse Ox O2 Delivery O2 Flow Rate FiO2 07/18/17 06:25 98.3 77 16 150/78 (102) 93 07/17/17 22:00 67 18 161/67 (98) 95 07/17/17 20:00 181/70 (107) 07/17/17 19:00 98.1 88 18 190/80 (116) 94 ([place]) -: 07/17/17 0518 07/17/17 0518 Physical Exam General Appearance: Well Developed, No Acute Distress, Comfortable ([place]) Neck Neck Exam: Neck Supple ([place]) Pulmonary Resp Exam: Decreased Bases ([place]) Cardiology CV Exam: Regular, Normal Sinus Rhythm ([place]) Gastrointestinal/Abdomen GI Exam: Soft, Non-Tender, Bowel Sounds Present ([place]) Musculoskeletal MS Exam: Joints Intact, Normal Tone ([place]) Integumentary Skin Exam: Warm, Dry ([place]) Extremeties Extremities Exam: No Edema, Pedal Pulses Palpable ([place]) Neurologic Neuro Exam: Alert, Awake, Oriented, Speech Clear, Moving All Extremities ([place]) Assessment/Plan Discussed Condition With: Patient Assessment Summary: ALDO/Acute Renal Failure Problem List: (1) Acute renal failure ICD Codes: N17.9 - Acute kidney failure, unspecified Plan: She has normal renal function at baseline. ALDO most likely due to rapid correction of blood pressure, hypoperfusion injury ; also due to Bactrim use, which was stopped. Renal function had improved, although she refused AM lab draw Stop IVF, tolerating oral fluids She is non oliguric (2) HTN (hypertension) ICD Codes: I10 - Essential (primary) hypertension Plan: She is on Norvasc; resume JOELLEN inhibitor tomorrow (3) UTI (urinary tract infection) ICD Codes: N39.0 - Urinary tract infection, site not specified Status: Acute Plan: Was on Bactrim; may have had sufficient therapy Repeat culture is negative (4) Dementia in other diseases classified elsewhere with behavioral disturbance ICD Codes: F02.81 - Dementia in other diseases classified elsewhere with behavioral disturbance Plan: Psych to manage Plan We will sign off at this time. ([place]) Plan patient was seen and examined. We will sign off at this time. Renal function has improved. Agree with above assessment and plan. (Bull Ramirez MD) Problem Qualifiers (1) UTI (urinary tract infection): Qualified Codes: N30.00 - Acute cystitis without hematuria [place] Jul 18, 2017 09:57 Bull Ramirez MD Jul 18, 2017 10:08
[2017-07-18] MEDS ORDERED: POTASSIUM CHLORIDE 20 MEQ PWD PACKET PO ONE (10:00)
--- NOTE | 2017-07-18 11:05 | HHI.PYPN ---
Subjective Remarks This is the psychiatric progress note for July 17, 2017. Patient seen at bedside. Electronic medical record reviewed. Case discussed with nurse. No changes in clinical presentation. Review of Systems ROS Limitations: Clinical Condition Except as stated in HPI: all other systems reviewed are Neg Mental Status Examination Appearance: Appropriate Consciousness: Alert Orientation: Person Motor Activity: Abnormal gait Speech: Unremarkable Language: Adequate Fund of Knowledge: Inadequate Attention and Concentration: Adequate Memory: Impaired Mood: Appropriate, Other ("depressed") Affect: Appropriate Thought Process & Associations: Tangential Thought Content: Appropriate Hallucination Type: None Delusion Type: None Suicidal Ideation: No Suicidal Plan: No Suicidal Intention: No Homicidal Ideation: No Homicidal Plan: No Homicidal Intention: No Insight: Fair Judgment: Impulsive Results Labs Date/Time Source Procedure Growth Status 07/15/17 09:30 Stool Stool Stool Occult Blood (JUAN) - Final HEMOCCULT NEGATIVE Complete 07/10/17 15:30 Urine Catheterized Urine Urine Culture - Final 50-100,000 CFU/ML MIXED GRAM POSITIVE... Complete Vitals/IOs Vital Signs Date Time Temp Pulse Resp B/P (MAP) Pulse Ox O2 Delivery O2 Flow Rate FiO2 07/18/17 06:25 98.3 77 16 150/78 (102) 93 Intake and Output 07/18/17 07/18/17 07/19/17 08:00 16:00 00:00 Intake Total 360 ml 940 ml Balance 360 ml 940 ml Assessment & Plan Problem List: (1) Alzheimer's dementia with behavioral disturbance ICD Codes: G30.9 - Alzheimer's disease, unspecified; F02.81 - Dementia in other diseases classified elsewhere with behavioral disturbance (2) Dementia in other diseases classified elsewhere with behavioral disturbance ICD Codes: F02.81 - Dementia in other diseases classified elsewhere with behavioral disturbance Assessment & Plan Estimated LOS: days continue current treatment plan. Justification for Cont. Inpt. Likely to decompensate at lower level of care. Solis Gonzalez MD Jul 18, 2017 11:05
--- NOTE | 2017-07-18 11:33 | HHI.PR ---
Subjective Remarks Follow up for dementia, ALDO, hypokalemia. Patient is currently doing well. No acute concerns. Son is at bedside. Wants to go back to [facility]. Objective Vitals Vital Signs Date Time Temp Pulse Resp B/P (MAP) Pulse Ox O2 Delivery O2 Flow Rate FiO2 07/18/17 06:25 98.3 77 16 150/78 (102) 93 07/17/17 22:00 67 18 161/67 (98) 95 07/17/17 20:00 181/70 (107) 07/17/17 19:00 98.1 88 18 190/80 (116) 94 I/O 07/17/17 07/17/17 07/17/17 07/18/17 07/18/17 07/18/17 07:00 15:00 23:00 07:00 15:00 23:00 Intake Total 160 ml 600 ml 940 ml Balance 160 ml 600 ml 940 ml Intake Oral 160 ml 600 ml 240 ml IV Total 700 ml # Voids 2 3 # Bowel Movements 2 2 Result Diagram: 07/17/17 0518 07/17/17 0518 Imaging Last Impressions Renal Ultrasound 07/15/17 0000 Signed Impressions: Service Date/Time: Saturday, July 15, 2017 10:17 - CONCLUSION: Echogenic kidneys bilaterally compatible with medical renal disease. Celestino Lopez MD Pelvis CT 07/12/17 0000 Signed Impressions: Service Date/Time: Wednesday, July 12, 2017 10:40 - CONCLUSION: No definite fracture is seen for technique. Cash Vergara MD Head CT 07/12/17 0000 Signed Impressions: Service Date/Time: Wednesday, July 12, 2017 10:36 - CONCLUSION: Slight atrophic and small vessel ischemic changes without any evidence for acute hemorrhage or mass effect. Cash Vergara MD Chest X-Ray 07/10/17 1452 Signed Impressions: Service Date/Time: Monday, July 10, 2017 15:28 - CONCLUSION: No acute cardiopulmonary disease. Cash Vergara MD Objective Remarks GENERAL: Alert, NAD. SKIN: Warm and dry. HEAD: Normocephalic. EYES: No scleral icterus. No injection or drainage. NECK: Supple, trachea midline. No JVD or lymphadenopathy. CARDIOVASCULAR: Regular rate and rhythm without murmurs, gallops, or rubs. RESPIRATORY: Breath sounds equal bilaterally. No accessory muscle use. GASTROINTESTINAL: Abdomen soft, non-tender, nondistended. MUSCULOSKELETAL: No cyanosis, or edema. BACK: Nontender without obvious deformity. No CVA tenderness. Procedures NONE A/P Assessment and Plan 81-year-old female patient with history of dementia and behavioral disturbance admitted to psychiatric unit for suicidal ideation. Medicine has been consultation for management of chronic medical problems. Dementia and behavioral disturbance - Management per psychiatry. Patient is medically cleared for discharge to [facility] with rehab. Decreased renal function worsening - BUN 34--->51 creatinine 2.47--->2.81 GFR 19--->16 Cr improved to 1.07. - Received 500ml NS bolus. Continue gentle hydration NS @ 50ml/hr, renal US with bilateral echogenic kidneys consistent with medical disease, consult nephrology appreciate recommendations - Continue to encourage oral fluids - Monitor for fluid overload - Discontinued lisinopril, started amlodipine for blood pressure control. Fall unwitnessed - Head CT and Abd/pelvis CT negative for fracture or bleed. - Fall precautions - Continue fall precautions HTN, fluctuates - BP this morning 150/78. If it continues to be high, Amlodipine can be increased to 10mg Qday. - Discontinued lisinopril secondary to decreased renal function, started amlodipine - clonodine prn - Continue trending BP Blood in stool - H&H have been stable - Monitor for bleeding, likely hemorrhoids. - Not on any blood thinners. - Did take a look at stool on bed pad, surrounding brown stool, does not appear to be blood to me rather soaking of stool on pad. HLD - continue statin UTI - Culture and sensitivity with mixed gram-positive organisms probably contaminated - OFF BACTRIM DVT prop - Early ambulation Discussed with patient's son. Patient is currently in room air. I think it would be appropriate for her to go back to [facility] where they can provide rehab services as well. Will check Magnesium on yesterday's blood sample, called lab. If it is low, we will try to replete magnesium before patient goes to rehab/[facility] HOME. Kane Sloan DO Jul 18, 2017 11:33 am
[2017-07-18] MEDS ORDERED: AMLO5 PO (11:40)
--- NOTE | 2017-07-18 11:44 | HHI.PYPN ---
Subjective Remarks Patient seen for follow-up, chart reviewed. Discussion she staff reported the patient had no behavioral disturbances and recall cooperative staff. Patient is found lying in hospital bed, cooperative. Patient states that she has been feeling "usual", alert and oriented only to person and place. Patient reports her mood has been fair, energy has been "a little weak but noted to be in good spirits. Patient denies any SI, HI, AVH or delusions. Patient was for psychiatric discharge but had required further medical evaluation follow for worsening kidney function. She continues to be psychiatrically for discharge and now just waiting for medical clearance for her to be discharged back to her [facility] where there are rehabilitation services available to her there. [employer] Super[employer] counselor spoke with a sheet son and family meeting which she expresses concern for patient's deconditioning laying in bed and states that she is usually more active physically involved person in activities. He states understanding current medical concerns and will wait to speak with the hospitalist for an update. Review of Systems Except as stated in HPI: all other systems reviewed are Neg Mental Status Examination Appearance: Appropriate Consciousness: Alert Orientation: Person Motor Activity: Abnormal gait Speech: Unremarkable Language: Adequate Fund of Knowledge: Inadequate Attention and Concentration: Adequate Memory: Impaired Mood: Appropriate Affect: Appropriate Thought Process & Associations: Tangential Thought Content: Appropriate Hallucination Type: None Delusion Type: None Suicidal Ideation: No Suicidal Plan: No Suicidal Intention: No Homicidal Ideation: No Homicidal Plan: No Homicidal Intention: No Insight: Fair Judgment: Impulsive Results Labs Labs reviewed Date/Time Source Procedure Growth Status 07/15/17 09:30 Stool Stool Stool Occult Blood (JUAN) - Final HEMOCCULT NEGATIVE Complete 07/10/17 15:30 Urine Catheterized Urine Urine Culture - Final 50-100,000 CFU/ML MIXED GRAM POSITIVE... Complete Vitals/IOs Vital Signs Date Time Temp Pulse Resp B/P (MAP) Pulse Ox O2 Delivery O2 Flow Rate FiO2 07/18/17 06:25 98.3 77 16 150/78 (102) 93 Intake and Output 07/18/17 07/18/17 07/19/17 08:00 16:00 00:00 Intake Total 360 ml 940 ml Balance 360 ml 940 ml Assessment & Plan Problem List: (1) Alzheimer's dementia with behavioral disturbance ICD Codes: G30.9 - Alzheimer's disease, unspecified; F02.81 - Dementia in other diseases classified elsewhere with behavioral disturbance (2) Dementia in other diseases classified elsewhere with behavioral disturbance ICD Codes: F02.81 - Dementia in other diseases classified elsewhere with behavioral disturbance Assessment & Plan Patient at this time hasn't had no behavioral disturbances since admission, tolerating medications well, psychiatric stable for discharge currently waiting medical clearance to be overly discharged back to her assisted living facility to undergo physical rehabilitation services there. Continue current treatment. Will await medical clearance and recommendations. Discharge planning in progress Justification for Cont. Inpt. At risk for further decompensation if at lower level of care Discharge Planning Patient to return back to her assisted living facility where there are physical rehabilitation services available to her there. Liam Powers MD Jul 18, 2017 11:44
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
== END 2017-07-18 17:30 | DRG 57 ==
LOC: NEPD 14:18 → NEDA 07-11 12:01 → H4EA 07-11 19:18 → H250 07-13 09:10 → H4EA 07-14 16:14
PROVIDERS: ADMIT Student in an Organized Health Care Education/Training Program; ATTEND Student in an Organized Health Care Education/Training Program
DX: G30.9 Alzheimer's disease, unspecified (principal); N17.9 Acute kidney failure, unspecified; E87.2 Acidosis; F02.81 Dementia in other diseases classified elsewhere, unspecified severity, with behavioral disturbance; R45.851 Suicidal ideations; N30.00 Acute cystitis without hematuria; I10 Essential (primary) hypertension; E78.5 Hyperlipidemia, unspecified; E87.6 Hypokalemia; F32.9 Major depressive disorder, single episode, unspecified; H40.9 Unspecified glaucoma; M81.0 Age-related osteoporosis without current pathological fracture; T37.0X5A Adverse effect of sulfonamides, initial encounter; Y92.231 Patient bathroom in hospital as the place of occurrence of the external cause; M25.512 Pain in left shoulder; M25.511 Pain in right shoulder; Z87.891 Personal history of nicotine dependence; W18.11XA Fall from or off toilet without subsequent striking against object, initial encounter
CPT/HCPCS: 70450; 71010; 72192; 76775; 80048; 80053; 80061; 80307; 81001; 82272; 82306; 82607; 83036; 83735; 84443; 85014; 85018; 85025; 87086; 87493; 93005; 96372; J1200; J1630; J2060; J7030; J7040; Q0163